=== PATIENT | male | born 1980 | race Caucasian/White ===

== ENCOUNTER 2023-01-03 08:37 | Outpatient (RCR) | payer OTHER, SELFPAY ==
--- NOTE | 2022-11-09 10:06 | ONC.NURNOTE ---
Dx: Crohn's disease
--- NOTE | 2022-12-16 14:47 | URNOTE ---
Addendum entered by Nidia Clemens RN 12/16/22 15:43: Called pt to schedule infusion on 01/03/2023. Pt is aware of the PA being good only through 02/03/2023. Pt's fiance also on the line and plans to discuss this issue with a benefits person at their place of employment to work on getting this further covered at [facility]. Original Note: Request received for authorization for?Inflectra ([id number]). Prior Authorization for Inflectra is approved for a nahomy period administration of Inflectra in an outpatient facility until 02/03/2023 per [facility] see scanned document.
[2023-01-03 08:51] VITALS: BP 143/89; PULSE 95; RESP 16; TEMP 36.8; O2SAT 96
[2023-01-03] MEDS: 0.9 % SODIUM CHLORIDE 250 ml 250 ML 35 ML IV (09:15)
--- NOTE | 2023-01-27 12:16 | ONC.NURNOTE ---
Manufacturing Operations Manager received a call from Orion asking to cancel his Remicade infusion appointment due to insurance issues. Orion will be receiving his Remicade at another facility.
== END 2023-07-02 23:59 | disposition home or self-care (01) ==
LOC: CCIC 08:37
PROVIDERS: Visit Provider Clinical Nurse Specialist
DX: K50.90 Crohn's disease, unspecified, without complications (principal)
CPT/HCPCS: 96413; 96415; Q5103; J7050

== ENCOUNTER 2024-05-02 12:55 | Emergency (ER) | payer OTHER, SELFPAY ==
[2024-05-02 12:58] VITALS: BP 159/98; PULSE 80; RESP 18; TEMP 36.8; O2SAT 96; BMI 33.4
--- OUTSIDE RECORDS SUMMARY | 2024-05-02 12:58 | XMS_ITS | Encounter Summary ---
Author Organization [facility] Address [address] [place] [address] Care Team Providers Care Auto Cleaner Name Role Phone Tristan Burnham D.O. Primary Care Provider [phone]- [phone] Reason for Referral * Outpatient (Routine) - Authorized Specialty Diagnoses / Procedures Referred By Contact Referred To Contact Gastroenterology and Hepatology Diagnoses Elevated Liver Enzyme Abnormal, Aspartate Transaminase, Serum Glutamic-Oxaloacetic Transaminase, Alanine Transaminase Aysha Brantley M.B., B.Ch., B.A.O. [address] [place] [phone] Phone: tel:[phone] fax:[phone] [facility] Referral ID Status Reason Start Date Expiration Date V isits Requested Visits Authorized [id number] Authorized 04/30/2024 10/30/2025 1 1 OW UP MANAGER Encounter Details Date Type Department Care Team (Latest Contact Info) Description 04/30/2024 Results Follow-Up Division of Gastroenterology in [place], [place] [address] [place] [phone] Aysha Brantley M.B., B.Ch., B.A.O. [address] [place] [phone] Comprehensive Metabolic Panel, CBC with Differential, Blood, Iron and Total Iron-Binding Capacity, Additional followed-up results: 4 Social History Tobacco Use Types Packs/Day Years Used Date Smoking Tobacco: Former Smokeless Tobacco: Former Chew Alcohol Use Standard Drinks/Week Comments Yes 4 (1 standard drink = 0.6 oz pur e alcohol) Na [facility] Utilities Answer Date Recorded In the past 12 months has e electric, gas, oil, or water company threatened to shut off services in your home? No 03/21/2024 Humiliation, Afraid, Rape, and Kick questionnair e Answer Date Recorded Within the last year, have y ou been afraid of your partner or ex-partner? No 10/28/2022 Within the last year, have y ou been humiliated or emotionally abused in other ways by your partner or ex-partner? No Within the last year, have y ou been kicked, hit, slapped, or otherwise physically hurt by your partner or ex-partner? No 10/28/2022 Within the last year, have y ou been raped or forced to have any kind of sexual activity by your partner or ex-partner? No 10/28/2022 Social Connection and Isolat ion Panel [NHANES] Answer Date Recorded In a typical week, how many times do you talk on the phone with family, friends, or neighbors? More than three times a week 04/30/2021 How often do you get togethe r with friends or relatives? Once a week 04/30/2021 How often do you attend chur or buddhist services? Never 04/30/2021 Do you belong to any clubs o r organizations such as gnosticism groups, unions, fraternal or athletic groups, or school groups? No 04/30/2021 How often do you attend meet ings of the clubs or organizations you belong to? Never 04/30/2021 Are you , , di vorced, , never , or living with a partner? Never 04/30/2021 AUDIT-C Answer Date Recorded Q1: How often do you have a drink containing alc ohol? 2-4 times a month 04/30/2021 Q2: How many drinks containi ng alcohol do you have on a typical day when you are drinking? 3 or 4 04/30/2021 Q3: How often do you have si x or more drinks on one occasion? Less than monthly 04/30/2021 Overall Financial Resource Strain (CARDIA) Answe r Date Recorded How hard is it for you to pa y for the very basics like food, housing, medical care, and heating? Not hard at all 10/28/2022 PHQ-2 Answer Date Recorded PHQ-2 Score 0 04/30/2021 [facility] of Occupat ional [facility] - Occupational Stress Questionnaire Answer Date Recorded Do you feel stress - tense, restless, nervous, or anxious, or unable to sleep at night because your mind is troubled all the time - these days? To some extent 04/30/2021 Exercise Vital Sign Answer Date Recorde d On average, how many days pe r week do you engage in moderate to strenuous exercise (like a brisk walk)? 5 days 03/21/2024 On average, how many minutes do you engage in exercise at this level? 60 min 03/21/2024 Hunger Vital Sign Answer Date Recorded Within the past 12 months, y ou worried that your food would run out before you got the money to buy more. Never true 03/21/19 Within the past 12 months, t he food you bought just didn't last and you didn't have money to get more. Never true 03/21/2024 PRAPARE - Transportation Answer Date Re corded In the past 12 months, has l ack of transportation kept you from medical appointments or from getting medications? No 03/01 In the past 12 months, has l ack of transportation kept you from meetings, work, or from getting things needed for daily living? No 03/21/2024 Depression Answer Date Recor ded PHQ-9 Total Score (max 27) 2 04/30 Nutrition Answer Date Recorded On average, how many serving s of fruits and vegetables do you eat per day (serving size is equal to 1 cup or approximately the size of a tennis ball)? 3-5 03/21/2024 Dental Answer Date Recorded Dental: Regular Dentist Yes 05/01/19 Employment Answer Date Recorded Employment status Employed and actively working without restrictions 03/21/2024 Housing Stability Answer Date Recorded What is your living situation today? [facility] a [facility] place to live 03/21/2024 Education Answer Date Recorded What is the highest level of school you have completed or the highest degree you have received? Bachelor's degree (e.g., BA, AB, BS) 08/07/2019 Sex and Gender Information Value Date Recorded Sex Assigned at Male 02/09/2017 7:38 PM FOLLOW UP MANAGER Legal Sex Male 4:30 PM FOLLOW UP MANAGER Gender Identity Male 02/09/2017 7:38 PM FOLLOW UP MANAGER Sexual Orientation Straight 02/09/2017 7: 38 PM FOLLOW UP MANAGER documented as of this encounter Miscellaneous Notes * Result Encounter Note - Aysha Brantley M.B., B.Ch., B.A.O. - 04/30/2024 12:28 PM CST Review of labs performed prior to initiation of new biologic therapy for inflammatory bowel disease: - creatinine 1.07, albumin 4.4, AST mildly elevated 45, ALT mildly elevated 57, alkaline phosphatase 71, total bilirubin 0.7 - ferritin 63, iron 120, TIBC 407, vitamin B12 292, C-reactive protein less than 3 - hemoglobin 16.1, WBC 6.6 - hepatitis B surface antigen negative - QuantiFERON gold negative OW UP MANAGER documented in this encounter Plan of Treatment Upcoming Encounters Date Type Department Care Team (Late st Contact Info) Description 05/29/2024 12:00 PM CDT Appointment Department of Laboratory Medicine and Pathology, [place], [place] [address] [place] [phone] Aysha Brantley M.B., B.Ch., B.A.O. [address] [place] [phone] 05/29/2024 2:00 PM CDT Appointment Department of Radiology, [place], [place] [address] [place] [phone] Aysha Brantley M.B., B.Ch., B.A.O. [address] [place] [phone] 05/30/2024 9:45 AM CDT Appointment Division of Gastroenterology in [place], [place] [address] [place] [phone] Aysha Brantley M.B., B.Ch., B.A.O. [address] [place] [phone] 06/07/2024 10:00 AM CDT Telemedicine Division of Gastroenterology in [place], [place] [address] [place] [phone] Aysha Brantley M.B., B.Ch., B.A.O. [address] [place] [phone] Scheduled Orders Name Type Priority Associated Diagnoses Orde r Schedule HBc Total Ab, Serum Microbiology Routine Elevated Liver Enzyme Abnormal, Aspartate Transaminase, Serum Glutamic-Oxaloacetic Transaminase, Alanine Transaminase Expected: 04/30/2024, Expires: 07/31/2025 HBs Antibody, Serum Microbiology Routine Elevated Liver Enzyme Abnormal, Aspartate Transaminase, Serum Glutamic-Oxaloacetic Transaminase, Alanine Transaminase Expected: 04/30/2024, Expires: 07/31/2025 Scheduled Referrals Name Type Priority Associated Diagnoses Order Schedule Gastroenterology and Hepatology - Hepatology consult (clinic) Outpatient Referral Routine Elevated Liver Enzyme Abnormal, Aspartate Transaminase, Serum Glutamic-Oxaloaceti c Transaminase, Alanine Transaminase Expected: 04/30/2024, Expires: 07/31/2025 documented as of this encounter Visit Diagnoses Diagnosis Elevated Liver Enzyme Abnormal, Aspartate Transaminase, Serum Glutamic- Oxaloacetic Transaminase, Alanine Transaminase- Primary documented in this encounter Additional Health Concerns Assessment Noted Time PHQ-9 Depression Total Score: 2 05/01/19 22 8:11 AM FOLLOW UP MANAGER documented as of this encounter Care Teams Auto Cleaner Relationship Specialty Start Date End Date Tristan Burnham D.O. [address], [place] [phone] PCP - General Internal Medicine 12/12/17 documented as of this encounter
--- OUTSIDE RECORDS SUMMARY | 2024-05-02 12:58 | XMS_ITS | Encounter Summary ---
Author Organization [facility] Address [address] [place] [address] Care Team Providers Care Party Planner Name Role Phone Tristan Burnham D.O. Primary Care Provider +1- [phone] Encounter Details Date Type Department Care Team (Late st Contact Info) Description 04/20/2024 Orders Only Division of Gastroenterology in [place], [place] [address] [place] [phone] External, Ordering Provider, Anthony Social History Tobacco Use Types Packs/Day Years Used Date Smoking Tobacco: Former Smokeless Tobacco: Former Chew Alcohol Use Standard Drinks/Week Comments Yes 4 (1 standard drink = 0.6 oz pur e alcohol) Na [facility] Utilities Answer Date Recorded In the past [...] 04/30/2021 How often do you attend chur ch or yarsanism services? Never 04/30/2021 Do you belong to any clubs o r organizations such as evangelical groups, unions, fraternal or athletic groups, or [...] Answer Date Recorded PHQ-2 Score 0 04/30/2021 [facility] of Occupat ional [facility] - Occupational Stress Questionnaire Answer Date Recorded [...] money to buy more. Never true 03/21/19 25 Within the past 12 months, t he [...] your living situation today? I have a [facility] place to live 03/21/2024 Education Answer Date Recorded What is the highest level of school you have completed or the highest degree you have received? Bachelor's degree (e.g., BA, AB, BS) 08/07/2019 Sex and Gender Information Value Date Recorded Sex Assigned at Male 02/09/2017 7:38 PM PROMOTION WRITER Legal Sex Male 4:30 PM PROMOTION WRITER Gender Identity Male 02/09/2017 7:38 PM PROMOTION WRITER Sexual Orientation Straight 02/09/2017 7: 38 PM PROMOTION WRITER documented as of this encounter Plan of Treatment Upcoming Encounters Date Type Department Care Team (Late st Contact Info) Description 05/29/2024 12:00 PM CDT Appointment Department of Laboratory Medicine and Pathology, [facility] in [place], [place] [address] [place] [phone] Aysha Brantley M.B., B.Ch., B.A.O. [address] [place] [phone] 05/29/2024 2:00 PM CDT Appointment Department of Radiology, [facility], in [place], [place] [address] [place] [phone] Aysha Brantley M.B., B.Ch., B.A.O. [address] [place] [phone] 05/30/2024 9:45 AM CDT Appointment Division of Gastroenterology in [place], [place] [address] [place] [phone] Aysha Brantley M.B., B.Ch., B.A.O. [address] [place] [phone] 06/07/2024 10:00 AM CDT Telemedicine Division of Gastroenterology in [place], [place] [address] [place] [phone] Aysha Brantley M.B., B.Ch., B.A.O. [address] [place] [phone] documented as of this encounter Procedures Procedure Name Priority Date/Time Associated Diagnosis Comments IRON AND TOT IRON-BINDING CAPACITY, S/P Routine 04/20/2024 7:19 AM PROMOTION WRITER HEPATITIS B SURFACE ANTIGEN Routine 04/20/2024 7:19 AM PROMOTION WRITER CBC WITH DIFFERENTIAL, B Routine 04/20/2024 7:19 AM PROMOTION WRITER C-REACTIVE PROTEIN (CRP), S/P Routine 04/20/2024 7:19 AM PROMOTION WRITER FERRITIN, S Routine 04/20/2024 7:19 AM PROMOTION WRITER VITAMIN B12 ASSAY, S Routine 04/20/2024 7:19 AM PROMOTION WRITER COMPREHENSIVE METABOLIC PANEL, S/P Routine 04/20/2024 7:19 AM PROMOTION WRITER documented in this encounter Results * Hepatitis B Surface Antigen (04/20/2024 7:19 AM PROMOTION WRITER) EXT Hepatitis B Surface Ag NON-REACTI VE NON-REACTI VE SCANNED REPORT 04/20/2024 7:19 AM PROMOTION WRITER Narrative SCANNED REPORT - 04/26/2024 8:10 AM PROMOTION WRITER Source result document attached to Order Number [id number] ([id number]) dated 04/20/2024. External results verified in Extract by Katarina Faust on 04/26/2024 at 08:03 AM. us Ordering Provider External Anthony LAB MICROBIOLOGY - BLOOD ORDERABLES Final Result Performing Organization Address City/[facility]/ZIP Co de Phone Number SCANNED REPORT * CRP (C-Reactive Protein) (04/20/2024 7:19 AM PROMOTION WRITER) EXT C-Reactive Protein Quantative <3.0 <8.0 mg/L SCANNED REPORT 04/20/2024 7:19 AM PROMOTION WRITER Narrative [facility] - 04/26/2024 8:10 AM PROMOTION WRITER Source result document attached to Order Number [id number] ([id number]) dated 04/20/2024. External results verified in Extract by Katarina Faust on 04/26/2024 at 08:03 AM. us Ordering Provider Rick Cruz LAB BLOOD ADD-ON Final Result Performing Organization Address City/[facility]/ZIP Co de Phone Number [facility] NA SCANNED REPORT * Vitamin B12 Assay (04/20/2024 7:19 AM PROMOTION WRITER) Pathologist [facility] EXT Vitamin B12 Assay, S 292 200 - 1,100 pg/mL SCANNED REPORT 04/20/2024 7:19 AM PROMOTION WRITER Narrative [facility] - 04/26/2024 8:10 AM PROMOTION WRITER Source result document attached to Order Number [id number] ([id number]) dated 04/20/2024. External results verified in Extract by Katarina Faust on 04/26/2024 at 08:03 AM. us Ordering Provider Rick Cruz LAB BLOOD ADD-ON Final Result Performing Organization Address [facility] Co de Phone Number [facility] NA SCANNED REPORT * Ferritin (04/20/2024 7:19 AM PROMOTION WRITER) Pathologist [facility] EXT Ferritin, S 63 38 - 380 ng/mL SCANNED REPORT 04/20/2024 7:19 AM PROMOTION WRITER Narrative [facility] - 04/26/2024 8:10 AM PROMOTION WRITER Source result document attached to Order Number [id number] ([id number]) dated 04/20/2024. External results verified in Extract by Katarina Faust on 04/26/2024 at 08:03 AM. us Ordering Provider Rick Cruz LAB BLOOD ADD-ON Final Result Performing Organization Address [facility] Phone Number [facility] NA SCANNED REPORT * Iron and Total Iron-Binding Capacity (04/20/2024 7:19 AM PROMOTION WRITER) [facility] EXT Iron 120 50 - 180 mcg/dL SCANNED REPORT EXT Total Iron Binding Capacity 407 250 - 425 mcg/dL SCANNED REPORT 04/20/2024 7:19 AM PROMOTION WRITER Narrative [facility] - 04/26/2024 8:10 AM PROMOTION WRITER Source result document attached to Order Number [id number] ([id number]) dated 04/20/2024. External results verified in Extract by Katarina Faust on 04/26/2024 at 08:03 AM. us Ordering Provider Rick Cruz LAB BLOOD ADD-ON Final Result Performing Organization Address [facility] Co de Phone Number [facility] NA SCANNED REPORT * CBC with Differential, Blood (04/20/2024 7:19 AM PROMOTION WRITER) [facility] EXT Leukocytes 6.6 3.8 - 10.8 Thousand/u L SCANNED REPORT EXT RBC 5.17 4.20 - 5.80 Million/uL SCANNED REPORT EXT Hemoglobin 16.1 13.2 - 17.1 g/dL SCANNED REPORT EXT Hematocrit 47.1 38.5 - 50.0 % SCANNED REPORT EXT MCV 91.1 80.0 - 100.0 fL SCANNED REPORT EXT RDW 13.3 11.0 - 15.0 % SCANNED REPORT 04/20/2024 7:19 AM PROMOTION WRITER Narrative [facility] - 04/26/2024 8:10 AM PROMOTION WRITER Source result document attached to Order Number [id number] ([id number]) dated 04/20/2024. External results verified in Extract by Katarina Faust on 04/26/2024 at 08:03 AM. us Ordering Provider External M.D. LAB BLOOD ADD-ON Final Result [facility] NA SCANNED REPORT * (ABNORMAL) Comprehensive Metabolic Panel (04/20/2024 7:19 AM PROMOTION WRITER) [facility] EXT Glucose 98 65 - 99 mg/dL SCANNED REPORT EXT BUN (Blood Urea Nitrogen) 13 7 - 25 mg/dL SCANNED REPORT EXT Creatinine 1.07 0.60 - 1.29 mg/dL SCANNED REPORT EXT Estimated GFR (eGFR) 87 >=60 mL/min/1.7 3m2 SCANNED REPORT EXT Sodium 143 135 - 146 mmol/L SCANNED REPORT EXT Potassium 3.8 3.5 - 5.3 mmol/L SCANNED REPORT EXT Chloride 104 98 - 110 mmol/L SCANNED REPORT EXT CO2 30 20 - 32 mmol/L SCANNED REPORT EXT Calcium, Total 10.0 8.6 - 10.3 mg/dL SCANNED REPORT EXT Total Protein 7.4 6.1 - 8.1 g/dL SCANNED REPORT EXT Albumin 4.4 3.6 - 5.1 g/dL SCANNED REPORT EXT Bilirubin, Total 0.7 0.2 - 1.2 mg/dL SCANNED REPORT EXT Alkaline Phosphatase 71 36 - 130 U/L SCANNED REPORT EXT AST 45(H) 10 - 40 U/L SCANNED REPORT EXT ALT 57(H) 9 - 46 U/L SCANNED REPORT 04/20/2024 7:19 AM PROMOTION WRITER Narrative SCANNED REPORT - 04/26/2024 8:10 AM PROMOTION WRITER External results verified in Extract by Katarina Faust on 04/26/2024 at 08:03 AM. Additional tests on scanned report. us Ordering Provider External M.D. LAB BLOOD ADD-ON Final Result SCANNED REPORT documented in this encounter Visit Diagnoses Not on filedocumented in this encounter Additional Health Concerns Assessment Noted Time PHQ-9 Depression Total Score: 2 05/01/19 22 8:11 AM PROMOTION WRITER documented as of this encounter Care Teams Party Planner Relationship Specialty Start Date End Date Tristan Burnham D.O. [address] [phone] PCP - General Internal Medicine 12/12/17 documented as of this encounter
--- OUTSIDE RECORDS SUMMARY | 2024-05-02 12:58 | XMS_ITS | Clinical Summary ---
Author Organization [facility] Address [address] [place] [id number] Care Team Providers Care Civil Structural Engineer Name Role Phone Timothy Gorman DO Primary Care Provider [phone] Allergies Active Allergy Reactions Criticality Noted Date Comments Pollen Extracts Other - Describe In Comment Field 03/23/2018 Nasal congestion Medications inFLIXimab (REMICADE) 100 mg injectionIndica tions:Crohn's disease Inject intravenous. q 6 weeks 0 04/27/19 11 Active omeprazole (PRILOSEC) 40 mg Delayed-Release capsuleIndicati ons:gastroesoph ageal reflux disease Take 40 mg by mouth once daily. Active multivitamin chewIndications :vitamin deficiency prevention Take 1 tablet by mouth once daily. Active fluoxetine HCl (PROZAC ORAL)Indication s:depression Take 30 mg by mouth once daily. Active cetirizine (ZYRTEC) 10 mg tabletIndicatio ns:Allergic rhinitis, unspecified seasonality, unspecified trigger Take 1 Tablet (10 mg) by mouth once daily. 30 Tablet 5 06/19/19 23 Active amLODIPine (NORVASC) 5 mg tabletIndicatio ns:Primary hypertension Take 1 Tablet (5 mg) by mouth once daily. 90 Tablet 3 04/01/19 24 Active beclomethasone dipropionate (QVAR REDIHALER) 80 mcg/actuation HFAb HFA inhaler Inhale 1 Puff by mouth. Active CYANOCOBALAMIN, VITAMIN B-12, INJ Inject 1,000 mcg As Directed. Active FLUoxetine (PROZAC) 10 mg capsuleIndicati ons:Mild episode of recurrent major depressive disorder,Anxiet y state Take 1 Capsule by mouth once daily. Take in combination with 20mg capsule for a total daily dose of 30mg. 90 Capsule 02/27/20 24 Active FLUoxetine (PROZAC) 20 mg capsuleIndicati ons:Mild episode of recurrent major depressive disorder,Anxiet y state Take 1 Capsule by mouth once daily. Take in combination with 10mg capsule for a total dose of 30mg. 90 Capsule 02/27/20 24 Active lisinopriL (PRINIVIL; ZESTRIL) 40 mg tabletIndicatio ns:Primary hypertension Take 1 Tablet by mouth once daily. 90 Tablet 04/06/19 25 Active lisinopriL (PRINIVIL; ZESTRIL) 40 mg tabletIndicatio ns:Primary hypertension Take 1 Tablet (40 mg) by mouth once daily. 90 Tablet 3 01/26/20 23 025 Discontinued Active Problems Problem Noted Date Diagnosed Date Immunodeficiency due to drugs 03/24/2023 Gastroesophageal reflux disease 04/25/2018 06/18/2022 Primary hypertension 08/09/2017 06/18/2022 Mild episode of recurrent major depressive disor joel 08/09/2017 06/18/2022 Chronic rhinitis 06/09/2017 06/18/2022 B12 deficiency 11/14/2014 06/18/2022 Crohn's disease 02/16/2010 Overview (02/16/2010): Diagnosed at age 17. Anxiety state, unspecified 11/19/2007 Resolved Problems Problem Noted Date Diagnosed Date Resolved Date Nephrolithiasis 04/25/2018 06/18/2022 06/18/2022 Erectile dysfunction 12/12/2017 06/18/2022 023 Iron deficiency anemia 11/12/2016 06/18/202206/18 Anemia, unspecified 05/25/2006 06/19/19 23 Overview (02/16/2010): Secondary to Crohn's Encounters Date Type Department Care Team Description 04/20/2024 7:30 AM MAINFRAME PROGRAMMER ANALYST Orders Only [facility] [place] [address] [place] [address] Lab, [facility] 04/19/2024 Travel 04/05/2024 Refill [facility] [address] [facility] [address] Mendy Gormani, DO Refill Request (Lisinopril) 02/23/2024 Refill [facility] [address] [place] [address] Timothy Gorman, DO Refill Request (Fluoxetine, Fluoxetine) from Last 3 Months Immunizations Name Administration Dates Next Due COVID-19 VACCINE SPIKEVAX (M ODERNA 50MCG/0.5ML) 12YO+ PFS 12/17/2022 Hepatitis A (Adult) 12/17/2011 Hepatitis B (Adult) 04/20/2006,10/21/1997,1997 Influenza Virus, Unspecified 11/11/2016,11/23/19 14,12/08/2009 Influenza, IIV3 (Age >=3 years) 12/08/2009 Influenza, IIV4 12/17/2022,01/10/2021,03/14/2015 Influenza, RIV3 (Age =>18 Years) 11/22/2013 MMR 10/05/1991 Meningococcal Mcv4, Unspecified Formulation 11/28 Meningococcal Vaccine (Menactra) 12/17/2011 Pneumococcal Poly,23-Valent (Pneumovax) 12/17/19 12 Tdap 12/17/2011,04/20/2006 Tuberculin (PPD) 12/08/2009 Family History Medical History Relation Name Comments Unknown Father Diabetes Maternal Uncle Teenager Type I Good Health Mother Asthma Sister Relation Name Status Comments Father Alive Maternal Uncle Mother Alive Sister Social History Tobacco Use Types Packs/Day Years Used Date Smoking Tobacco: Former Smokeless Tobacco: Former Chew Quit: 11/19/2009 Tobacco Cessation:Counseling Given: Yes Alcohol Use Standard Drinks/Week Comments Yes 0 (1 standard drink = 0.6 oz pur e alcohol) once a week PHQ-2 Answer Date Recorded PHQ-2 TOTAL SCORE 0 04/19/2023 Social Connections Answer Date Recorded Frequency of Communication with Friends and Fami ly 0 06/18/2022 Financial Resource Strain Answer Date R ecorded Difficulty of Paying Living Expenses 3 06/18/2022 Difficulty of Paying Living Expenses Not on file 06/18/2022 Food Insecurity Answer Date Recorded Worried About Running Out of Food in the Last Ye ar 1 06/18/2022 Transportation Needs Answer Date Record ed Lack of Transportation (Medical) 1 06/18/2022 Housing Stability Answer Date Recorded Unable to Pay for Housing in the Last Year 1 06/18/2022 Sex and Gender Information Value Date Recorded Sex Assigned at Not on file Legal Sex Male 5:24 AM MAINFRAME PROGRAMMER ANALYST Gender Identity Not on file Sexual Orientation Not on file Occupation Industry Job Start Date Job End Date [employer] Not on file Not on 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 Not on file Not on file Not on file Obstetrics History Last Filed Vital Signs Vital Sign Reading Time Taken Comments Blood Pressure 136/71 06/21/2023 7:30 AM CDT Pulse 101 06/21/2023 7:30 AM CDT Temperature 36.4 C (97.6 F) 03/24/2023 8:39 AM MAINFRAME PROGRAMMER ANALYST Respiratory Rate 20 06/18/2022 1:53 PM CDT Oxygen Saturation 95% 06/21/2023 7:30 AM CDT Inhaled Oxygen Concentration - - Weight 124.1 kg (273 lb 9.6 oz) 06/21/2023 7:30 AM CDT Height 188 cm (6' 2) 06/21/2023 7:30 AM CDT Body Mass Index 35.13 06/21/2023 7:30 AM CDT Plan of Treatment Upcoming Encounters Date Type Department Care Team (Late st Contact Info) Description 05/04/2024 3:20 PM MAINFRAME PROGRAMMER ANALYST Office Visit [facility] [address] [place] [address] Timothy Gorman, [address] [place] [address] Health Maintenance Due Date Last Done Comments Hepatitis C screening for ag e 18-79 1996 Pneumococcal series for age 6-49 (2 of 2 - PCV) 12/16/2012 12/17/2011 Tetanus booster 12/16/2021 12/17/2011, 04/20/2006 Lipids for age 45-75 10/13/2023 02/25/2010 COVID-19 vaccine series ( season) 2023 12/17/2022, 12/31/2020, 05/28/2020, Additional history exists Influenza for age 9-49 10/30/2023 3, 01/10/2021, 11/11/2016, Additional history exists Depression screening for age 12+ 04/19/2024 04/19/19 24 BMI (ht and wt on same day) for age 18+ 06/20/2024 06/21/2023, 12/27/2022, 06/18/2022 Colonoscopy through age 75 05/26/2031 05/25/2021 HIV for age 15-65 Completed 02/09/2010 Tdap Completed 12/17/2011, 04/20/2006 Procedures Procedure Name Priority Date/Time Associated Diagnosis Comments SCAN-COLONOSCOPY 05/25/2021 12:0 0 AM CDT LIPID PANEL Routine 02/25/2010 12:02 PM MAINFRAME PROGRAMMER ANALYST Screening for lipoid disorders ANTI HIV 1/2 Routine 02/09/2010 2:43 PM MAINFRAME PROGRAMMER ANALYST Screening for STDs (sexually transmitted diseases) from Last 3 Months or Most Recently Relevant to Health Maintenance Results * SCAN-COLONOSCOPY (05/25/2021 12:00 AM CDT) us Scanner OTHER Final Result * LIPID PANEL (02/25/2010 12:02 PM MAINFRAME PROGRAMMER ANALYST) CHOLESTEROL,TOTAL 186 110 - 199 mg/dL [facility] TRIGLYCERIDES 50 <150 mg/dL [facility] HDL CHOLESTEROL 71 >40 mg/dL [facility] CHOL/HDL RATIO 2.62 <4.51 [facility] LDL CHOLESTEROL 105 <131 mg/dL [facility] PATIENT STATUS Fasting [facility] Blood specimen (specimen) BLOOD SPECIMEN / Unknown 02/25/2010 12:02 PM MAINFRAME PROGRAMMER ANALYST 02/25/2010 11:56 AM MAINFRAME PROGRAMMER ANALYST us Junito Redd MD CHEMISTRY Final Resu lt [facility] [address] [place] [address] * HIV (02/09/2010 2:43 PM MAINFRAME PROGRAMMER ANALYST) ANTI HIV 1/2 Non-reacti ve [facility] Blood specimen (specimen) BLOOD SPECIMEN / Unknown 02/09/2010 2:43 PM MAINFRAME PROGRAMMER ANALYST 02/09/2010 2:35 PM MAINFRAME PROGRAMMER ANALYST us Junito Redd MD SEND OUTS Final Resu lt [facility] INTERNAL ZIP [id number] [place] [id number] from Last 3 Months or Most Recently Relevant to Health Maintenance Insurance [facility] [employer] Advance Directives * Full Code (Latest Code Status on File) Date Activated Date Inactivated Comments 03/28/2018 9:38 AM 03/28/2018 12:59 PM * Full Code Date Activated Date Inactivated Comments 11/16/2007 3:45 PM 11/21/2007 4:25 PM * Full Code Date Activated Date Inactivated Comments 02/26/2006 6:01 AM 02/27/2006 6:40 PM Care Teams Civil Structural Engineer Relationship Specialty Start Date End Date Timothy [place] [address] PCP - General Family Practice 02/09/23
--- OUTSIDE RECORDS SUMMARY | 2024-05-02 12:58 | XMS_ITS | Clinical Summary ---
Author Organization [facility] Address [address] [place] [address] Care Team Providers Care Wool Mixer Name Role Phone Tristan Burnham D.O. Primary Care Provider [phone] Source Comments Patient records contain information from all sites at [facility]. For routine questions regarding patient records, call [phone] during business hours, M-F 8:00 AM - 5:00 PM Central Time. Record requests for emergency care only can be directed to [phone] at any time.[facility] Allergies Active Allergy Reactions Criticality Noted Date Comments Pollen Extracts Other (see comments) 01/04/2017 Medications * This document contains information received from the source organization and may not represent a complete record from that organization. cyanocobalamin (for_VITAMIN B12) 100 mcg tablet Take 100 mcg by mouth daily. Active multivitamin chewable tablet Chew 1 tablet daily. Active FLUoxetine (PROzac) 20 mg capsuleIndicati ons:Depression Major Recurrent Mild (HCC),Anxiety TAKE 1 CAPSULE (20 MG TOTAL) BY MOUTH DAILY. WITH 10MG DOSE FOR TOTAL OF 30 MG DAILY. 90 capsule 3 3 Active FLUoxetine (PROzac) 10 mg capsuleIndicati ons:Depression Major Recurrent Mild (HCC),Anxiety Take 1 capsule (10 mg total) by mouth daily. With 20mg dose for total of 30 mg daily. 90 capsule 3 3 Active lisinopriL (PRINIVIL,ZESTR IL) 40 mg tablet TAKE 1 TABLET BY MOUTH EVERY DAY 90 tablet 08/07/202 3 Active colestipoL (COLESTID) 1 gram tabletIndicatio ns:Crohn's Disease (HCC),Diarrhea Take 1 tablet (1 g total) by mouth 2 (two) times a day. 60 tablet 2 3 Active Additional Information Patient not taking.Reported on 08/05/2023 cetirizine (ZyrTEC) 10 mg tablet Take 10 mg by mouth as needed. Active fexofenadine (NIGEL) 60 mg tablet Take 60 mg by mouth as needed. Active amLODIPine (NORVASC) 2.5 mg tablet Take 5 mg by mouth daily. 3 Active [id number]-[id number]-[id number]-[id number] b-C (MoviPrep) 100-7.5-2.691 gram kit Take first half of the prep at 4pm the evening before and start second half 3 to 6 hours before and finish 2 hours prior to report time. 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 Comprehensive Metabolic Panel, CBC with Differential, Blood, Iron and Total Iron-Binding Capacity, Additional followed-up results: 4 04/20/2024 Orders Only Division of Gastroenterology in [place], [place] [address] [place] [address] External, Ordering ProviderAnthony 03/22/2024 1:00 PM TECHNICAL SOLUTIONS ENGINEER Telemedicine Division of Gastroenterology in [place], [place] [address] [place] [address] Aysha Brantley M.B., B.Ch., B.A.O. Crohn's Disease (HCC) (Primary Dx); Melanoma Trunk (HCC); Pain Periumbilical 03/12/2024 Orders Only Division of Gastroenterology in [place], [place] [address] [place] [address] Charisma Niño M.D. 03/09/2024 Orders Only Department of Infusion Therapy in [place], [place] [address] [place] [address] Loy Lara, R.NValeriano 03/06/2024 Orders Only [facility] PCP [facility] MNT Tristan Burnham D.O. Monitoring For Therapeutic Drug Therapy from Last 3 Months Immunizations Immunization Administration Dates Next Due HepA Adult 12/17/2011 HepB Adult 04/20/2006 HepB Pediatric/Adolescent 10/21/1997,09/16/1997 Influenza TIV (IM) 11/22/2013,12/08/2009 Influenza, Seasonal, Injectable 12/08/2009 Influenza, Unspecified 11/11/2016 MCV4, Unspecified 12/17/2011 MMR 10/05/1991 PPD Test 12/08/2009 PPSV23 12/17/2011 Tdap 12/17/2011,04/20/2006 influenza trivalent vaccine (6 months and older)(PF) 12/12/2017,12/17/2011 influenza vaccine quad (FLUZONE/FLUARIX) (6 months and older)(PF) 01/10/2021,10/29/2019,12/10/2018,2016,03/14/2015 Family History Medical History Relation Name Comments No Known Problems Father estranged Stroke Maternal Grandfather Lammica Larry BALL Breast cancer Mother Tori Garcia Diabetes Mother's Brother Damian Type 1 Allergies Sister Diabetes mellitus type I Uncle Relation Name Status Comments Father estranged Other Maternal Grandfather Mira Juarez Mother Tori Garcia Mother's Brother Damian Sister Uncle Social History Tobacco Use Types Packs/Day Years Used Date Smoking Tobacco: Former Smokeless Tobacco: Former Chew Tobacco Cessation:Counseling Given: Not Answered Alcohol Use Standard Drinks/Week Comments Yes 4 (1 standard drink = 0.6 oz pur e alcohol) Na [facility] Utilities Answer Date Recorded In the past 12 months has e [place], [employer], oil, or water [employer] threatened to shut off services in your [...] How often do you attend chur or gnosticism services? Never 04/30/2021 Do you belong to any clubs o r organizations such as temple groups, unions, fraternal or athletic groups, or [...] Date Recorded PHQ-2 Score 0 04/30/2021 [facility] - Occupational Stress Questionnaire Answer Date Recorded [...] your living situation today? I have a reza place to live 03/21/2024 Education Answer Date Recorded What is the highest level of school you have completed or the highest degree you have received? Bachelor's degree (e.g., BA, AB, BS) 08/07/2019 Sex and Gender Information Value Date Recorded Sex Assigned at Male 02/09/2017 7:38 PM TECHNICAL SOLUTIONS ENGINEER Legal Sex Male 4:30 PM TECHNICAL SOLUTIONS ENGINEER Gender Identity Male 02/09/2017 7:38 PM TECHNICAL SOLUTIONS ENGINEER Sexual Orientation Straight 02/09/2017 7: 38 PM TECHNICAL SOLUTIONS ENGINEER Last Filed Vital Signs Vital Sign Reading Time Taken Comments Blood Pressure 140/83 01/27/2024 2:10 PM TECHNICAL SOLUTIONS ENGINEER Pulse 76 01/27/2024 2:10 PM TECHNICAL SOLUTIONS ENGINEER Temperature 36.6 C (97.9 F) 01/27/2024 12:54 PM TECHNICAL SOLUTIONS ENGINEER Respiratory Rate 16 01/27/2024 2:10 PM TECHNICAL SOLUTIONS ENGINEER Oxygen Saturation 97% 01/27/2024 12:54 PM TECHNICAL SOLUTIONS ENGINEER Inhaled Oxygen Concentration - - Weight 118 kg (260 lb 12.9 oz) 01/27/2024 12:54 PM TECHNICAL SOLUTIONS ENGINEER Height 186 cm (6' 1.23) 04/30/2021 8:17 AM TECHNICAL SOLUTIONS ENGINEER Body Mass Index 34.2 04/30/2021 8:17 AM TECHNICAL SOLUTIONS ENGINEER Plan of Treatment Upcoming Encounters Date Type Department Care Team (Late st Contact Info) Description 05/29/2024 12:00 PM CDT Appointment Department of Laboratory Medicine and Pathology, [place], [place] [address] [place] [address] Aysha Brantley M.B., B.Ch., B.A.O. [address] [place] [phone] 05/29/2024 2:00 PM CDT Appointment Department of Radiology, [facility] in [place], [place] [address] [place] [address] Aysha Brantley M.B., B.Ch., B.A.O. [address] [place] [phone] 05/30/2024 9:45 AM CDT Appointment Division of Gastroenterology in [place], [place] [address] [place] [phone] Aysha Brantley M.B., B.Ch., B.A.O. [address] [place] [phone] 06/07/2024 10:00 AM CDT Telemedicine Division of Gastroenterology in [place], [place] [address] [place] [phone] Aysha Brantley M.B., B.Ch., B.A.O. [address] [place] [phone] Health Maintenance Due Date Last Done Comments CT Colonography 1978 Cologuard 1978 Depression Monitoring (PHQ-9) 1978 HIV Screening 1978 Hepatitis C Screening 1978 Visit: Chronic Disease, age 18+ 1978 Zoster Vaccines (1 of 2) 1997 HPV Vaccines (1 - Risk 3-dose SCDM series) 2005 Hepatitis A Vaccines (2 of 2 - Risk 2-dose series) 06/16/2012 12/17/2011 Pneumococcal vaccine (0-49 years) (2 of 2 - PCV) 12/16/2012 12/17/2011 DTaP,Tdap,and Td Vaccines (3 - Td or Tdap) 12/16/2021 12/17/2011, 04/20/2006 COVID-19 Vaccine ( season) 2023 12/17/2022, 12/31/2020, 05/28/2020, Additional history exists Influenza Vaccine (#1) 2023 , 01/10/2021, 10/29/2019, Additional history exists Depression Monitoring (PHQ-9 for quality tracking) 02/29/2024 Office Visit for Blood Pressure Check / Re-check 04/27/2024 01/27/2024 Creatinine Level (Kidney Function Test) 04/20/2025 04/20/2024, 04/06/2023, 02/23/2023, Additional history exists Potassium Level 04/20/2025 04/20/2024, 02/0 08/2023, 02/23/2023, Additional history exists Sodium Level 04/20/2025 04/20/2024, 02/0 08/2023, 02/23/2023, Additional history exists Lipid (Cholesterol) Screening 03/16/2026 03/16/2021, 04/25/2020, 04/24/2020, Additional history exists Colonoscopy 05/25/2026 05/25/2021, 04/29, 05/25/2021, Additional history exists Colorectal Cancer Surveillance 05/25/2026 Fasting Glucose for Diabetes Screening 04/20/2027 04/20/2024, 04/06/2023, 02/23/2023, Additional history exists Hepatitis B Vaccines Completed 04/20/2006, 10/21/1997, 09/16/1997 Hepatitis B Screening Completed 04/20/2024 IPV Vaccines Aged Out No longer eligi ble based on patient's age to complete this topic Procedures Procedure Name Priority Date/Time Associated Diagnosis Comments C-REACTIVE PROTEIN (CRP), S/P Routine 04/20/2024 7:19 AM TECHNICAL SOLUTIONS ENGINEER VITAMIN B12 ASSAY, S Routine 04/20/2024 7:19 AM TECHNICAL SOLUTIONS ENGINEER FERRITIN, S Routine 04/20/2024 7:19 AM TECHNICAL SOLUTIONS ENGINEER IRON AND TOT IRON-BINDING CAPACITY, S/P Routine 04/20/2024 7:19 AM TECHNICAL SOLUTIONS ENGINEER CBC WITH DIFFERENTIAL, B Routine 04/20/2024 7:19 AM TECHNICAL SOLUTIONS ENGINEER COMPREHENSIVE METABOLIC PANEL, S/P Routine 04/20/2024 7:19 AM TECHNICAL SOLUTIONS ENGINEER QUANTIFERON-TB GOLD PLUS, B Routine 04/20/2024 7:19 AM TECHNICAL SOLUTIONS ENGINEER HEPATITIS B SURFACE ANTIGEN Routine 04/20/2024 7:19 AM TECHNICAL SOLUTIONS ENGINEER COLONOSCOPY Routine 05/25/2021 12:20 PM CDT Crohn's Disease (HCC) LIPID PANEL, S Routine 03/16/2021 12:29 PM TECHNICAL SOLUTIONS ENGINEER Screening Lipid from Last 3 Months or Most Recently Relevant to Health Maintenance Results * QuantiFERON-Tb Gold Plus, Blood (04/20/2024 7:19 AM TECHNICAL SOLUTIONS ENGINEER) [facility] EXT QuantiFERON-TB Gold Result negative negative SCANNED REPORT 04/20/2024 7:19 AM TECHNICAL SOLUTIONS ENGINEER Narrative SCANNED REPORT - 04/26/2024 8:10 AM TECHNICAL SOLUTIONS ENGINEER Source result document attached to Order Number [id number] ([id number]) dated 04/20/2024. External results verified in Extract by Katarina Faust on 04/26/2024 at 08:08 AM. us Ordering Provider External M.DValeriano LAB MICROBIOLOGY - BLOOD ORDERABLES Final Result SCANNED REPORT * Iron and Total Iron-Binding Capacity (04/20/2024 7:19 AM TECHNICAL SOLUTIONS ENGINEER) [facility] EXT Iron 120 50 - 180 mcg/dL SCANNED REPORT EXT Total Iron Binding Capacity 407 250 - 425 mcg/dL SCANNED REPORT 04/20/2024 7:19 AM TECHNICAL SOLUTIONS ENGINEER Narrative [facility] - 04/26/2024 8:10 AM TECHNICAL SOLUTIONS ENGINEER Source result document attached to Order Number [id number] ([id number]) dated 04/20/2024. External results verified in Extract by Katarina Faust on 04/26/2024 at 08:03 AM. us Ordering Provider External M.DValeriano LAB BLOOD ADD-ON Final Result [facility] NA SCANNED REPORT * Hepatitis B Surface Antigen (04/20/2024 7:19 AM TECHNICAL SOLUTIONS ENGINEER) [facility] EXT Hepatitis B Surface Ag NON-REACTI VE NON-REACTI VE SCANNED REPORT 04/20/2024 7:19 AM TECHNICAL SOLUTIONS ENGINEER Narrative SCANNED REPORT - 04/26/2024 8:10 AM TECHNICAL SOLUTIONS ENGINEER Source result document attached to Order Number [id number] ([id number]) dated 04/20/2024. External results verified in Extract by Katarina Faust on 04/26/2024 at 08:03 AM. us Ordering Provider External M.DValeriano LAB MICROBIOLOGY - BLOOD ORDERABLES Final Result SCANNED REPORT * CBC with Differential, Blood (04/20/2024 7:19 AM TECHNICAL SOLUTIONS ENGINEER) [facility] EXT Leukocytes 6.6 3.8 - 10.8 Thousand/u L SCANNED REPORT EXT RBC 5.17 4.20 - 5.80 Million/uL SCANNED REPORT EXT Hemoglobin 16.1 13.2 - 17.1 g/dL SCANNED REPORT EXT Hematocrit 47.1 38.5 - 50.0 % SCANNED REPORT EXT MCV 91.1 80.0 - 100.0 fL SCANNED REPORT EXT RDW 13.3 11.0 - 15.0 % SCANNED REPORT 04/20/2024 7:19 AM TECHNICAL SOLUTIONS ENGINEER Narrative [facility] - 04/26/2024 8:10 AM TECHNICAL SOLUTIONS ENGINEER Source result document attached to Order Number [id number] ([id number]) dated 04/20/2024. External results verified in Extract by Katarina Faust on 04/26/2024 at 08:03 AM. us Ordering Provider External M.DValeriano LAB BLOOD ADD-ON Final Result [facility] NA SCANNED REPORT * CRP (C-Reactive Protein) (04/20/2024 7:19 AM TECHNICAL SOLUTIONS ENGINEER) [facility] EXT C-Reactive Protein Quantative <3.0 <8.0 mg/L SCANNED REPORT 04/20/2024 7:19 AM TECHNICAL SOLUTIONS ENGINEER Narrative [facility] - 04/26/2024 8:10 AM TECHNICAL SOLUTIONS ENGINEER Source result document attached to Order Number [id number] ([id number]) dated 04/20/2024. External results verified in Extract by Katarina Faust on 04/26/2024 at 08:03 AM. us Ordering Provider External M.DValeriano LAB BLOOD ADD-ON Final Result Performing Organization Address City/[facility]/ZIP Co de Phone Number [facility] NA SCANNED REPORT * Ferritin (04/20/2024 7:19 AM TECHNICAL SOLUTIONS ENGINEER) EXT Ferritin, S 63 38 - 380 ng/mL SCANNED REPORT 04/20/2024 7:19 AM TECHNICAL SOLUTIONS ENGINEER Narrative [facility] - 04/26/2024 8:10 AM TECHNICAL SOLUTIONS ENGINEER Source result document attached to Order Number [id number] ([id number]) dated 04/20/2024. External results verified in Extract by Katarina Faust on 04/26/2024 at 08:03 AM. us Ordering Provider External MRodney LAB BLOOD ADD-ON Final Result Performing Organization Address [facility] Co de Phone Number [facility] NA SCANNED REPORT * Vitamin B12 Assay (04/20/2024 7:19 AM TECHNICAL SOLUTIONS ENGINEER) EXT Vitamin B12 Assay, S 292 200 - 1,100 pg/mL SCANNED REPORT 04/20/2024 7:19 AM TECHNICAL SOLUTIONS ENGINEER Narrative [facility] - 04/26/2024 8:10 AM TECHNICAL SOLUTIONS ENGINEER Source result document attached to Order Number [id number] ([id number]) dated 04/20/2024. External results verified in Extract by Katarina Faust on 04/26/2024 at 08:03 AM. us Ordering Provider External M.DValeriano LAB BLOOD ADD-ON Final Result Performing Organization Address City/[facility]/ZIP Co de Phone Number [facility] NA SCANNED REPORT * (ABNORMAL) Comprehensive Metabolic Panel (04/20/2024 7:19 AM TECHNICAL SOLUTIONS ENGINEER) EXT Glucose 98 65 - 99 mg/dL [...] 46 U/L SCANNED REPORT 04/20/2024 7:19 AM TECHNICAL SOLUTIONS ENGINEER Narrative SCANNED REPORT - 04/26/2024 8:10 AM TECHNICAL SOLUTIONS ENGINEER External results verified in Extract by Katarina Faust on 04/26/2024 at 08:03 AM. Additional tests on scanned report. us Ordering Provider External M.D. LAB BLOOD ADD-ON Final Result SCANNED REPORT * (ABNORMAL) Lipid Panel (03/16/2021 12:29 PM TECHNICAL SOLUTIONS ENGINEER) Cholesterol, Total 254(H) mg/dL 2021 1:10 PM TECHNICAL SOLUTIONS ENGINEER OWAT Comment: ----REFERENCE VALUE---- Desirable: < 200 Borderline high: 200 - 239 High: > or = 240 Triglycerides 295(H) mg/dL 03/16/2021 1:10 PM TECHNICAL SOLUTIONS ENGINEER [employer]AT Comment: ----REFERENCE VALUE---- Normal: <150 Borderline high: 150-199 High: 200-499 Very high: > or =500 Cholesterol, HDL 78 >=40 mg/dL 03/16/19 1:10 PM TECHNICAL SOLUTIONS ENGINEER OWAT Calculated LDL 117 mg/dL 03/16/2021 1:10 PM TECHNICAL SOLUTIONS ENGINEER [employer]AT Comment: ----REFERENCE VALUE---- Desirable: <100 mg/dL Above Desirable: 100-129 mg/dL Borderline High: 130-159 mg/dL High: 160-189 mg/dL Very High: >=190 mg/dL Cholesterol, Non-HDL, Calculated 176(H) mg/dL 03/16/2021 1:10 PM TECHNICAL SOLUTIONS ENGINEER [employer]AT Comment: ----REFERENCE VALUE---- Desirable: <130 Above Desirable: 130-159 Borderline high: 160-189 High: 190-219 Very high: > or =220 Blood (Blood, Venous) 03/16/2021 12:29 PM TECHNICAL SOLUTIONS ENGINEER 03/16/2021 12:35 PM TECHNICAL SOLUTIONS ENGINEER us Tristan Burnham D.O. LAB BLOOD ADD-ON Final Res ult [facility] [address], [place] [address], [facility] [place] [address] [place] [address] from Last 3 Months or Most Recently Relevant to Health Maintenance Insurance [employer] Care Teams Wool Mixer Relationship Specialty Start Date End Date Tristan Burnham D.O. [address] [place] [phone] PCP - General Internal Medicine 12/12/17
--- OUTSIDE RECORDS SUMMARY | 2024-05-02 12:58 | XMS_ITS | Encounter Summary ---
Author Organization [facility] Address [address] [place] [address] Care Team Providers Care Pigs Feet Cleaner Name Role Phone Tristan Burnham D.O. Primary Care Provider [phone]- [phone] Reason for Referral * Outpatient (Routine) - Authorized Specialty Diagnoses / Procedures Referred By Contac t Referred To Contact Dermatology Diagnoses Crohn's Disease (HCC) Melanoma Trunk (HCC) Aysha Camacho M.B., B.Ch., B.A.O. [address] [place] [address] Phone: tel: fax: [facility] Referral ID Status Reason Start Date Expiration Date V isits Requested Visits Authorized [id number] Authorized 03/22/2024 09/21/2025 1 1 ECTIONS LIEUTENANT * Outpatient (Routine) - Authorized Specialty Diagnoses / Procedures Referred By Contac t Referred To Contact Diagnoses Crohn's Disease (HCC) Procedures Colonoscopy Aysha Camacho M.B., B.Ch., B.A.O. [address] [place] [address] Phone: tel: fax: [facility] Referral ID Status Reason Start Date Expiration Date V isits Requested Visits Authorized [id number] Authorized 03/22/2024 06/22/2025 1 1 ECTIONS LIEUTENANT * MRI/CAT/PET Scan (Routine) - Pending Review Specialty Diagnoses / Procedures Referred By Contac t Referred To Contact Radiology Diagnoses Pain Periumbilical Procedures CT Abdomen Pelvis Enterography without and with IV Contrast Aysha Camacho M.B., B.Ch., B.A.O. [address] [place] [phone] Phone: tel: fax: [facility] Referral ID Status Reason Start Date Expiration Date V isits Requested Visits Authorized [id number] Pending Review 03/22/2024 06/22/2025 1 1 ECTIONS LIEUTENANT * Outpatient (Routine) - Authorized Specialty Diagnoses / Procedures Referred By Contact Referred To Contact Gastroenterology and Hepatology Aysha Camacho M.B., B.Ch., B.A.O. [address] [place] [phone] Phone: tel: fax: [facility] Referral ID Status Reason Start Date Expiration Date V isits Requested Visits Authorized [id number] Authorized 03/22/2024 09/21/2025 1 1 ECTIONS LIEUTENANT Reason for Visit * Outpatient (Routine) - Closed Specialty Diagnoses / Procedures Referred By Contact Referred To Contact Gastroenterology and Hepatology Charisma Niño M.D. [address] [place] [phone] Phone: tel: fax: [facility] Referral ID Status Reason Start Date Expiration Date Visits Re quested Visits Authorized [id number] Closed 03/12/2024 09/11/2025 1 1 Encounter Details Date Type Department Care Team (Latest Contact Info) Description 03/22/2024 1:00 PM CORRECTIONS LIEUTENANT Telemedicine Division of Gastroenterology in [place], [place] [address] [place] [address] Aysha Camacho M.B., B.Ch., B.A.O. [address] [place] [phone] Crohn's Disease (HCC) (Primary Dx); Melanoma Trunk (HCC); Pain Periumbilical Social History Tobacco Use Types Packs/Day Years Used Date Smoking Tobacco: Former Smokeless Tobacco: Former Chew Alcohol Use Standard Drinks/Week Comments Yes 4 (1 standard drink = 0.6 oz pur e alcohol) Na [facility] [employer] Answer Date Recorded In the past 12 months has e [employer], gas, oil, or water nap- Naturally Attached Parents threatened to shut off services in your [...] week 04/30/2021 How often do you attend [facility] or church services? Never 04/30/2021 Do you belong to any clubs o r organizations such as gnosticist groups, unions, fraternal or athletic groups, or [...] Answer Date Recorded PHQ-2 Score 0 04/30/2021 [facility] - Occupational Stress Questionnaire Answer Date [...] your living situation today? I have a [facility] place to live 03/21/2024 Education Answer Date Recorded What is the highest level of school you have completed or the highest degree you have received? Bachelor's degree (e.g., BA, AB, BS) 08/07/2019 Sex and Gender Information Value Date Recorded Sex Assigned at Male 02/09/2017 7:38 PM CORRECTIONS LIEUTENANT Legal Sex Male 4:30 PM CORRECTIONS LIEUTENANT Gender Identity Male 02/09/2017 7:38 PM CORRECTIONS LIEUTENANT Sexual Orientation Straight 02/09/2017 7: 38 PM CORRECTIONS LIEUTENANT documented as of this encounter Patient Instructions * Attachments The following attachments cannot be sent through Care Everywhere. * Treatment of Inflammatory Bowel Disease: Interleukin-23 Inhibitors documented in this encounter Consult Notes * Aysha Camacho M.B., B.Ch., B.A.O. - 03/22/2024 1:00 PM CST INFLAMMATORY BOWEL DISEASE CONSULTATION DIAGNOSIS: CROHN'S DISEASE LOCAL METAL HANGING SUPERVISOR: Transfer of care in IBD Clinic SUPERVISING BOMB LOADER: Dr. Lazar SUBJECTIVE REASON FOR CONSULTATION: Orion Garcia is a 43 y.o. who presents from [place], [place] for consultation in IBD clinic for Crohn's disease. Past medical history is notable for kidney stones, depression, hypertension, GERD. The patient was last seen by Dr. Cain in IBD Clinic in October of 2022. 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, complicated by postoperative bleeding ED visits / Hospitalizations: None within the last 6 months Extraintestinal manifestations: kidney stones Colon cancer or dysplasia history: no Inflammatory Bowel Disease (IBD) Symptom Questionnaire how many bowel movements do you typically have each day: 5 average number of bowel movements that you had in a single day: 5 average number of liquid stools in a single day: 5 describe the frequency of your stools: >4 stools/day more than normal describe the consistency of most of your bowel movements: liquid how much rectal bleeding: visible blood in stool less than half the time how much abdominal pain: mild how much urgency have you had before bowel movements: Mild. I need to get to the bathroom within 5-15 minutes.. have you awoken at night to move your bowels: no have you had leakage of you stool while sleeping: yes have you had any leakage of stool while you were awake: yes general well-being over the last week: slightly under par past six months have you had an infection: no vaccinations since your last visit: no have you used tobacco in any form: no have you taken narcotic pain medications: no how many days have you missed work or school: 0 how many days have you been hospitalized: 0 how many days have you visited a hospital emergency department: 0 have you unintentionally lost weight: no IBD medication history: - a 5 ASA - following surgery in 2014, he was initiated on infliximab with current dosing 5 milligrams/kilogram every 6 weeks SOCIAL HISTORY: 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 Drinks 4-5 drinks nightly. Former smoker quit in 2014 No e cigarettes or vaping. OBJECTIVE PHYSICAL EXAMINATION: Video visit, no physical examination was performed DIAGNOSTICS Small bowel imagin10/29/2022 EXAM: CT ABDOMEN PELVIS ENTEROGRAPHY WITH IV CONTRAST COMPARISON: CT abdomen and pelvis enterography 10/09/2019 FINDINGS: Postoperative changes of ileocecectomy with side to side ileo-ascending colostomy. No evidence of inflammation at the anastomosis, the anastomosis appears widely patent. The remaining small bowel is normal in appearance with normal caliber, wall thickness and enhancement. Normal small bowel fold pattern. No definite findings of inflammation in the colon. The distal sigmoid colon and rectum appear mildly hyperenhancing and irregular, however this finding should be considered equivocal and may be better assessed at endoscopy if needed. Mesenteric vasculature is patent. No lymphadenopathy. No evidence of penetrating or perianal disease. Hepatic steatosis. 3mm low-density lesion in the right liver may represent a cyst or cavernous hemangioma, stable. Normal gallbladder. No biliary ductal dilatation. The spleen, pancreas, and adrenal glands are unremarkable. Stable small complex cyst in the right kidney with adjacent scarring. Tiny nonobstructing left kidney stones, stable. Small fat-containing right inguinal hernia. IMPRESSION: 1. No evidence of active small bowel Crohn's disease. 2. The distal sigmoid colon and rectum appear mildly hyperenhancing. However, this finding may be related to incomplete distention and should be considered equivocal. This would be better evaluated with endoscopy if needed. Colonoscopy: 04/2021 Post-op Diagnoses: - Patent functional end-to-end ileo-colonic anastomosis, characterized by healthy appearing mucosa, as photodocumented. - The examined portion of the neoterminal ileum was normal. Biopsied. - The examination was otherwise normal on direct and retroflexion views. The colonic mucosa was completely normal throughout its extent. - Biopsies were taken with a cold forceps for histology in the entire colon as described. FINAL DIAGNOSIS A. Small bowel, terminal ileum, blas-terminal, endoscopic biopsy: Ileal mucosa without diagnostic abnormality. No granulomas. B. Colon, cecum, endoscopic biopsy: Colonic mucosa without diagnostic abnormality. No dysplasia. C. Colon, transverse, endoscopic biopsy: Colonic mucosa without diagnostic abnormality. No dysplasia. D. Colon, descending, endoscopic biopsy: Colonic mucosa without diagnostic abnormality. No dysplasia. E. Colon, rectum, sigmoid, endoscopic biopsy: Colonic mucosa without diagnostic abnormality. No dysplasia. 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 male from [place], [place] who presents for assessment of Crohn's disease. This visit note will be sent to supervising oracle bpm consultant Dr. Lazar for further review. Past medical history is notable for kidney stones, depression, hypertension, GERD. The patient was last seen by Dr. Cain in IBD Clinic in October of 2022. 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 The patient was diagnosed with Crohn's disease in 1998. He has mostly had ileal disease complicatedby stricturing and penetrating phenotype. Initial medication was 5-ASA. 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 This was complicated by bleeding in the postoperative setting. He resumed infliximab monotherapy following surgery, and achieved clinical remission. He is also intermittently been on budesonide. At this time the patient is having increased bowel movements, associated with some mild urgency, and mild abdominal pain. This is not largely different from his baseline, but he is worried that he may be starting to have recurrence of disease activity. He has also had a change in his job, which has made it difficult for him to take days off to attend to his health. His last CT enterography in 2022 demonstrated no evidence of active small-bowel disease, though thedistal sigmoid colon and rectum appeared mildly hyperenhancing. His last colonoscopy was completed in 2021 which demonstrated endoscopic remission, without presence of dysplasia. Notably, the patient was scheduled for this urgent visit because he was no longer having insurance approval for his infliximab as he had not seen a provider in over a year. We discussed at length today that due to the presence of melanoma which was diagnosed since his last visit in IBD Clinic, we would recommend discontinuation of infliximab, based on the [employer] clinical practice update, due to the potential increased risk associated with anti TNF therapy and melanoma. In terms of alternate medications, due to the patient's high-risk Crohn's disease behavior p reviously, we would likely recommend continued biologic therapy. Some other options for us to consider include anti integrin agent such as vedolizumab, or anti IL 23 agents such as ustekinumab or risankizumab. We discussed that Skyrizi (risankizumab) would be my top choice, due to the sequence trial which showed increased benefit over ustekinumab, for moderate to severe Crohn's disease. In this study melanoma was not reported in either treatment group. Prior to prescribing any new medical therapy, the patient is due for annual IBD labs, and will needrepeat pre biologic labs. I will send the patient a prescription on the portal for him to have thiscompleted a lab of his choosing close to his job. He will let us know once these are completed, andif satisfactory I will send a prescription for Skyrizi infusions to [facility] and on the body injector to his specialty pharmacy. Additionally given the patient's symptoms he is due for colonoscopy, with anesthesia with surveillance biopsies. We would also like a CT enterography to rule out recurrence of disease as we are changing medical therapy. Additionally I strongly urged the patient to return to Dermatology for a skin check, he is overdue for his skin check which should be occurring every 6 months following his melanoma diagnosis. He is in agreement with the plan, and I will follow up with him in IBD Clinic once testing is completed. RECOMMENDATIONS: STOP Infliximab in the setting of malignant melanoma Complete annual IBD labs and pre-biologic labs (CBC, CMP, CRP, Vitamin D, Vitamin B12, Iron/Ferritin, Quantiferon Gold, Hepatitis B surface antigen, Hepatitis B surface antibody, Hepatitis B c total antibody). A prescription was sent to the patient on the portal following our visit. Once these labsare received I will place an order for Skyrizi infusions in [facility] and Skyrizi OBI to specialty pharmacy. The patient will notify me when these tests results. CT Enterography Colonoscopy with anesthesia to assess for surveillance (overdue) Referral back to dermatology for skin check given melanoma history Pending liver tests may need to consider Fibroscan and further work-up. Discussed cutting back on alcohol significantly would be beneficial for overall health. IBD Health care maintenance will be discussed in further detail at the next visit Provided education on risankizumab-rzaa Brand name: SKYRIZI ?? Mechanism of Action: Interleukin-23 Antagonist Route of Administration and dosin mg IV infusions (over about 1 hour) at weeks 0, 4, and 8, then 360 mg subcutaneous injection at week 12 and then every 8 weeks ongoing Missed dose: Do not miss doses. If there is a conflict, preferred to get dose a couple days early than late. If unpreventable disruption (e.g. blizzard), get missed dose as soon as possible. Onset of action: 4 weeks to a couple months Duration of therapy: chronic Storage: Refrigerate injections. Protect from light by storing in original package until time of use. Remove from fridge 45 to 90 minutes prior to injection. Common side effects include: Induction: upper respiratory infection, headache, joint pain Maintenance: joint pain, injection site reaction, abdominal pain, anemia, fever, back pain, urinarytract infection Serious side effects include: hypersensitivity, infections, tuberculosis, hepatoxicity Reviewed device technique with on-body injector. Rotate injection sites. Video available on Near Page. Resources on electrical instrumentation technician's website include financial assistance and more Enroll in [employer] Savings Program Counseling: Biologics: We discusses the risks and benefits of Skyrizi (Risankizumab) including the risk of serious infections, skin cancer and lymphoma. We discussed the importance of updating his immunizations with his primary provider. He should avoid live vaccinations. We recommend an annual skin exam for skin cancer screening by a tilting head band sawyer. IBD Treatment Monitoring: Biologics (Anti-TNF, Vedolizumab, Ustekinumab): CBC, liver enzymes and creatinine at least once a year FOLLOW UP: After testing is complete. Dr. Aysha Camacho Advanced Inflammatory Bowel Disease Fellow Division of Gastroenterology & Hepatology [place], [place] ECTIONS LIEUTENANT documented in this encounter Miscellaneous Notes * Addendum Note - Aysha Camacho M.B., BriceCh., B.A.O. - 03/22/2024 1:00 PM CSTAddended by: AYSHA CAMACHO on: 03/22/2024 03:03 PM Modules accepted: Orders ECTIONS LIEUTENANT documented in this encounter Plan of Treatment Upcoming Encounters Date Type Department Care Team (Late st Contact Info) Description 05/29/2024 12:00 PM CDT Appointment Department of Laboratory Medicine and Pathology, [facility], in [place], [place] [address] [place] [address] Aysha Camacho M.B., B.Ch., B.A.O. [address] [place] [phone] 05/29/2024 2:00 PM CDT Appointment Department of Radiology, [facility], in [place], [place] [address] [place] [phone] Aysha Camacho M.B., B.Ch., B.A.O. [address] [place] [phone] 05/30/2024 9:45 AM CDT Appointment Division of Gastroenterology in [place], [place] [address] [place] [phone] Aysha Camacho M.B., B.Ch., B.A.O. [address] [place] [phone] 06/07/2024 10:00 AM CDT Telemedicine Division of Gastroenterology in [place], [place] [address] [place] [address] Aysha Camacho M.B., B.Ch., B.A.O. [address] [place] [phone] Scheduled Orders Name Type Priority Associated Diagnoses Orde r Schedule CT Abdomen Pelvis Enterography without and with IV Contrast Imaging RAD - Routine (most inpatients and all outpatients) Pain Periumbilical Expected: 03/22/2024, Expires: 06/20/2025 Colonoscopy GI Routine Crohn's Disease (HCC) Expected: 03/22/2024, Expires: 06/20/2025 Scheduled Referrals Name Type Priority Associated Diagnoses Order Schedule Gastroenterology and Hepatology office visit (clinic) Outpatient Referral Routine Expected: 03/22/2024, Expires: 06/20/2025 Dermatology - Skin check consult (clinic) Outpatient Referral Routine Crohn's Disease (HCC) Melanoma Trunk (HCC) Expected: 03/22/2024, Expires: 06/20/2025 documented as of this encounter Procedures Procedure Name Priority Date/Time Associated Diagnosis Comments QUANTIFERON-TB GOLD PLUS, B Routine 04/20/2024 7:19 AM CORRECTIONS LIEUTENANT documented in this encounter Results * QuantiFERON-Tb Gold Plus, Blood (04/20/2024 7:19 AM CORRECTIONS LIEUTENANT) EXT QuantiFERON-TB Gold Result negative negative SCANNED REPORT 04/20/2024 7:19 AM CORRECTIONS LIEUTENANT Narrative SCANNED REPORT - 04/26/2024 8:10 AM CORRECTIONS LIEUTENANT Source result document attached to Order Number [id number] ([id number]) dated 04/20/2024. External results verified in Extract by Katarina Faust on 04/26/2024 at 08:08 AM. us Ordering Provider External M.DValeriano LAB MICROBIOLOGY - BLOOD ORDERABLES Final Result SCANNED REPORT documented in this encounter Visit Diagnoses Diagnosis Crohn's Disease (HCC)- Primary Melanoma Trunk (HCC) Pain Periumbilical documented in this encounter Additional Health Concerns Assessment Noted Time PHQ-9 Depression Total Score: 2 05/01/19 22 8:11 AM CORRECTIONS LIEUTENANT documented as of this encounter Care Teams Pigs Feet Cleaner Relationship Specialty Start Date End Date Tristan Burnham D.O. [address] [place] [phone] PCP - General Internal Medicine 12/12/17 documented as of this encounter
--- OUTSIDE RECORDS SUMMARY | 2024-05-02 12:58 | XMS_ITS | Encounter Summary ---
Author Organization [facility] Address [address] [place] [address] Care Team Providers Care [email or web address] Android Developer Name Role Phone Tristan Burnham D.O. Primary Care Provider +1- [phone] Encounter Details Date Type Department Care Team (Late st Contact Info) Description 03/09/2024 Orders Only Department of Infusion Therapy in [place], [place] [address], [place] [address] Loy Lara, RValerianoNValeriano [address] [place] [address] Social History Tobacco Use Types Packs/Day Years Used Date Smoking Tobacco: Former Smokeless Tobacco: Former Chew Alcohol Use Standard Drinks/Week Comments Yes 4 (1 standard drink = 0.6 oz pur e alcohol) Na [facility] Utilities Answer Date Recorded In the past 12 months has [employer], gas, oil, or water [employer] threatened to shut off services in your [...] How often do you attend chur or sikh services? Never 04/30/2021 Do you belong to [...] Answer Date Recorded PHQ-2 Score 0 04/30/2021 [facility] - [...] your living situation today? I have a [facility] place to live 03/21/2024 Education Answer Date Recorded What is the highest level of school you have completed or the highest degree you have received? Bachelor's degree (e.g., BA, AB, BS) 08/07/2019 Sex and Gender Information Value Date Recorded Sex Assigned at Male 02/09/2017 7:38 PM ORDER ADMINISTRATOR Legal Sex Male 4:30 PM ORDER ADMINISTRATOR Gender Identity Male 02/09/2017 7:38 PM ORDER ADMINISTRATOR Sexual Orientation Straight 02/09/2017 7: 38 PM ORDER ADMINISTRATOR documented as of this encounter Plan of Treatment Upcoming Encounters Date Type Department Care Team (Late st Contact Info) Description 05/29/2024 12:00 PM CDT Appointment Department of Laboratory Medicine and Pathology, [facility], in [place], [place] [address] [place] [address] Aysha Brantley M.B., B.Ch., B.A.O. [address] [place] [address] 05/29/2024 2:00 PM CDT Appointment Department of Radiology, [facility], in [place], [place] [address] [place] [phone] Aysha Brantley M.B., B.Ch., B.A.O. [address] [place] [phone] 05/30/2024 9:45 AM CDT Appointment Division of Gastroenterology in [place], [place] [address] [place] [phone] Aysha Brantley M.B., B.Ch., B.A.O. [address] [place] [phone] 06/07/2024 10:00 AM CDT Telemedicine Division of Gastroenterology in [place], [place] [address] [place] [phone] Aysha Brantley M.B., B.Ch., B.A.O. [address] [place] [phone] documented as of this encounter Visit Diagnoses Not on filedocumented in this encounter Additional Health Concerns Assessment Noted Time PHQ-9 Depression Total Score: 2 05/01/19 22 8:11 AM ORDER ADMINISTRATOR documented as of this encounter Care Teams J2Ee Android Developer Relationship Specialty Start Date End Date Tristan Burnham D.O. [address] [place] [phone] PCP - General Internal Medicine 12/12/17 documented as of this encounter
--- NOTE | 2024-05-02 13:54 | ED_ITS ---
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 This is on the right side of the midline. It is very well approximated, he came in just to ?make sure it is okay?. He had no loss conscious. He has no headache. He has no focal neurologic deficit. He states he hit into a door with there is no potential for foreign body. He has had no neurologic complaints or symptoms Related Data Home Medications ?Medication ?Instructions ?Recorded ?Confirmed cetirizine 10 mg tablet 10 mg PO DAILY 01/03/23 05/02/24 chlorthalidone 25 mg tablet 25 mg PO DAILY 01/03/23 05/02/24 fluoxetine 10 mg capsule 10 mg PO DAILY 01/03/23 05/02/24 fluoxetine 20 mg capsule 20 mg PO DAILY 01/03/23 05/02/24 lisinopril 40 mg tablet 40 mg PO DAILY 01/03/23 05/02/24 loperamide 2 mg capsule 2 mg PO 3XD PRN diarrhea 01/03/23 01/10/23 Previous Rx's ?Medication ?Instructions ?Recorded cephalexin 500 mg capsule 500 mg PO QID #20 caps 05/02/24 Allergies Allergy/AdvReac Type Severity Reaction Status Date / Time No Known Allergies Allergy Verified 05/02/24 13:04 Review of Systems Status of ROS: Reports: 6 or more systems reviewed and unremarkable except as noted in History and below Exam Narrative: Exam Narrative: Objective: Vital signs were slightly elevated systolic pressure but otherwise unremarkable He has got a vertical 2 cm laceration that is well adhered and minimally she has be well adhered and good hemostasis vertical from the junction of the upper nose and brow just the right of midline. There is no palpable step-off in the area rest of HEENT is unremarkable Procedure: After sterile scrub the wound was covered with Dermabond. Patient was given Keflex 500 orally. He will get it updated Tdap Const: Vital Signs, click to edit/add: Vital Signs - 24 hr 05/02/24 12:58 Temperature 98.3 F Pulse Rate [Pulse Oximeter] 80 Respiratory Rate 18 Blood Pressure [Ri ght Upper Arm] 159/98 H Pulse Oximetry 96 Oxygen Delivery Me thod Room Air Course Vital Signs Vital signs: Initial Vital Signs Temperature 98.3 F 05/02/24 12:58 Temperature Source Temporal Artery Scan 05/02/24 12:58 Pulse Rate 80 05/02/24 12:58 Respiratory Rate 18 05/02/24 12:58 Blood Pressure 159/98 H 05/02/24 12:58 Blood Pressure Mean 118 H 05/02/24 12:58 Blood Pressure Position Sitting 05/02/24 12:58 Pulse Oximetry 96 05/02/24 12:58 Oxygen Delivery Method Room Air 05/02/24 12:58 Vital Signs Temperature 98.3 F 05/02/24 12:58 Pulse Rate 80 05/02/24 12:58 Respiratory Rate 18 05/02/24 12:58 Blood Pressure 159/98 H 05/02/24 12:58 Pulse Oximetry 96 05/02/24 12:58 Oxygen Delivery Method Room Air 05/02/24 12:58 Temperature 98.3 F 05/02/24 12:58 Pulse Rate 80 05/02/24 12:58 Respiratory Rate 18 05/02/24 12:58 Blood Pressure 159/98 H 05/02/24 12:58 Pulse Oximetry 96 05/02/24 12:58 Oxygen Delivery Method Room Air 05/02/24 12:58 Medications Administered Medications: Discontinued Medications Generic Name Dose Route Start Last Admin Trade Name Freq PRN Reason Stop Dose Admin Cephalexin HCl 500 mg 05/02/24 13:54 05/02/24 14:11 Cephalexin 500 Mg Capsule PO 05/02/24 13:55 500 mg ONCE ONE Administration Diphtheria/Tetanus/Acell Pertussis 0.5 ml 05/02/24 13:54 05/02/24 14:32 Tetanus/Diphth/Pertussis 0.5 Ml Syringe IM 05/02/24 13:55 0.5 ml .ONCE ONE Administration Medical Decision Making MDM Narrative Medical decision making narrative: 43-year-old male with a laceration to the forehead that happened last night about 12 hours ago, appears well adhered. Good hemostasis. At this point we simply covered with Dermabond after cleansing and will give him Keflex 500 q.i.d. x5 days, update his Tdap. Watch for redness infection, light activity over the next week. He was comfortable this plan. Return as needed. Discharge Plan Discharge Clinical Impression: Facial laceration Patient Disposition: Home, Self-Care Condition: Stable Additional Instructions: Keep the wound dry for the next 72 hours if possible, watch for redness infection, Keflex 500 q.i.d. x5 days, Tylenol Advil as needed, avoid exertion such as exercise or contact activity for the next week. Recheck as needed. Activity Level: Light activity Discharge Diet: Regular Prescriptions: New cephalexin 500 mg capsule 500 mg PO QID Qty: 20 0RF No Action loperamide 2 mg capsule 2 mg PO 3XD PRN (Reason: diarrhea) cetirizine 10 mg tablet 10 mg PO DAILY chlorthalidone 25 mg tablet 25 mg PO DAILY fluoxetine 10 mg capsule 10 mg PO DAILY lisinopril 40 mg tablet 40 mg PO DAILY fluoxetine 20 mg capsule 20 mg PO DAILY Follow Up/Referrals: Provider,Not a Local [Non-Staff] - Stand Alone Forms: [facility] Info Instructions
--- OUTSIDE RECORDS SUMMARY | 2024-05-02 14:02 | XMS_ITS | Encounter Summary ---
Author Organization [facility] Address [address] [place] [address] Care Team Providers Care Recreation Center Director Name Role Phone Tristan Burnham D.O. Primary Care Provider [phone]- [phone] Encounter Details Date Type Department Care Team (Late st Contact Info) Description 03/09/2024 Orders Only Department of Infusion Therapy in [place], [place] [address] [address] Loy Lara, RValerianoNValeriano [address] [place] [address] Social History Tobacco Use Types Packs/Day Years Used Date Smoking Tobacco: Former Smokeless Tobacco: Former Chew Alcohol Use Standard Drinks/Week Comments Yes 4 (1 standard drink = 0.6 oz pur e alcohol) Na [facility] Utilities Answer Date Recorded In the past 12 months has [employer], gas, oil, or water [employer] threatened to shut off services in your [...] How often do you attend chur or restoration services? Never 04/30/2021 Do you belong to any clubs o r organizations such as advent groups, unions, fraternal or athletic groups, or [...] Date Recorded PHQ-2 Score 0 04/30/2021 [facility] - [...] your living situation today? I have a [facility] place to live 03/21/2024 Education Answer Date Recorded What is the highest level of school you have completed or the highest degree you have received? Bachelor's degree (e.g., BA, AB, BS) 08/07/2019 Sex and Gender Information Value Date Recorded Sex Assigned at Male 02/09/2017 7:38 PM PRINT PRODUCTION MANAGER Legal Sex Male 4:30 PM PRINT PRODUCTION MANAGER Gender Identity Male 02/09/2017 7:38 PM PRINT PRODUCTION MANAGER Sexual Orientation Straight 02/09/2017 7: 38 PM PRINT PRODUCTION MANAGER documented as of this encounter Plan of Treatment Upcoming Encounters Date Type Department Care Team (Late st Contact Info) Description 05/29/2024 12:00 PM CDT Appointment Department of Laboratory Medicine and Pathology, [facility], in [place], [place] [address] [place] [address] Aysha Brantley M.B., B.Ch., B.A.O. [address] [place] [address] 05/29/2024 2:00 PM CDT Appointment Department of Radiology, [facility], in [place], [place] [address] [place] [phone] Aysha Brantley M.B., B.Ch., B.A.O. [address] [place] [phone] 05/30/2024 9:45 AM CDT Appointment Division of Gastroenterology in [place], [place] [address] [place] [phone] Aysha Brantley M.B., B.Ch., B.A.O. [address] [place] [phone] 06/07/2024 10:00 AM CDT Telemedicine Division of Gastroenterology in [place], [place] [address] [place] [phone] Aysha Brantley M.B., B.Ch., B.A.O. [address] [place] [phone] documented as of this encounter Visit Diagnoses Not on filedocumented in this encounter Additional Health Concerns Assessment Noted Time PHQ-9 Depression Total Score: 2 05/01/19 22 8:11 AM PRINT PRODUCTION MANAGER documented as of this encounter Care Teams Recreation Center Director Relationship Specialty Start Date End Date Tristan Burnham D.O. [address] [place] [phone] PCP - General Internal Medicine 12/12/17 documented as of this encounter
--- OUTSIDE RECORDS SUMMARY | 2024-05-02 14:03 | XMS_ITS | Encounter Summary ---
Author Organization [facility] Address [address] [place] [address] Care Team Providers Care Filter Changing Technician Name Role Phone Tristan Burnham D.O. Primary Care Provider +1- [phone] Reason for Referral * Outpatient (Routine) - Authorized Specialty Diagnoses / Procedures Referred By Contact Referred To Contact Gastroenterology and Hepatology Diagnoses Elevated Liver Enzyme Abnormal, Aspartate Transaminase, Serum Glutamic-Oxaloacetic Transaminase, Alanine Transaminase Aysha Brantley M.B., B.Ch., B.A.O. [address] [place] [phone] Phone: tel:[phone] fax:[phone] [facility] Referral ID Status Reason Start Date Expiration Date V isits Requested Visits Authorized [id number] Authorized 04/30/2024 10/30/2025 1 1 LOADING MACHINE OPERATOR Encounter Details Date Type Department Care Team (Latest Contact Info) Description 04/30/2024 Results Follow-Up Division of Gastroenterology in [place], [place] [address] [place] [phone] Aysha Brantley M.B., B.Ch., B.A.O. [address] [place] [phone] Comprehensive Metabolic Panel, CBC with Differential, Blood, [...] How often do you attend chur or protestant services? Never 04/30/2021 Do you belong to any clubs o r organizations such as sikh groups, unions, fraternal or athletic groups, or [...] Answer Date Recorded PHQ-2 Score 0 04/30/2021 [facility] of Occupat ional [facility] - Occupational Stress Questionnaire Answer Date [...] your living situation today? I have a [facility] place to live 03/21/2024 Education Answer Date Recorded What is the highest level of school you have completed or the highest degree you have received? Bachelor's degree (e.g., BA, AB, BS) 08/07/2019 Sex and Gender Information Value Date Recorded Sex Assigned at Male 02/09/2017 7:38 PM JOY LOADING MACHINE OPERATOR Legal Sex Male 4:30 PM JOY LOADING MACHINE OPERATOR Gender Identity Male 02/09/2017 7:38 PM JOY LOADING MACHINE OPERATOR Sexual Orientation Straight 02/09/2017 7: 38 PM JOY LOADING MACHINE OPERATOR documented as of this encounter Miscellaneous Notes [...] surface antigen negative - QuantiFERON gold negative LOADING MACHINE OPERATOR documented in this encounter Plan of Treatment Upcoming Encounters Date Type Department Care Team (Late st Contact Info) Description 05/29/2024 12:00 PM CDT Appointment Department of Laboratory Medicine and Pathology, [place], [place] [address] [place] [phone] Aysha Brantley M.B., B.Ch., B.A.O. [address] [place] [phone] 05/29/2024 2:00 PM CDT Appointment Department of Radiology, [place], [place] [address] [place] [phone] Aysha Brantley M.B., B.Ch., B.A.O. [address] [place] [phone] 05/30/2024 9:45 AM CDT Appointment Division of Gastroenterology in [place], [place] [address] [place] [address] Aysha Brantley M.B., B.Ch., B.A.O. [address] [place] [phone] 06/07/2024 10:00 AM CDT Telemedicine Division of Gastroenterology in [place], [place] [address] [place] [phone] Aysha Brantley M.B., B.Ch., B.A.O. [address] [place] [phone] Scheduled Orders Name Type Priority Associated Diagnoses [...] Total Score: 2 05/01/19 22 8:11 AM JOY LOADING MACHINE OPERATOR documented as of this encounter Care Teams Filter Changing Technician Relationship Specialty Start Date End Date Tristan Burnham D.O. [address], [place] [phone] PCP - General Internal Medicine 12/12/17 documented as of this encounter
--- OUTSIDE RECORDS SUMMARY | 2024-05-02 14:03 | XMS_ITS | Encounter Summary ---
Author Organization [facility] Address [address] [place] [address] Care Team Providers Care Dry Wall Installations Mechanic Name Role Phone Tristan Burnham D.O. Primary Care Provider +1- [phone] Reason for Referral * Outpatient (Routine) - Authorized Specialty Diagnoses / Procedures Referred By Contac t Referred To Contact Dermatology Diagnoses Crohn's Disease (HCC) Melanoma Trunk (HCC) Aysha Camacho M.B., B.Ch., B.A.O. [address] [place] [address] Phone: tel: fax: [facility] Referral ID Status Reason Start Date Expiration Date V isits Requested Visits Authorized [id number] Authorized 03/22/2024 09/21/2025 1 1 NESS AND MARKETING TEACHER * Outpatient (Routine) - Authorized Specialty Diagnoses / Procedures Referred By Contac t Referred To Contact Diagnoses Crohn's Disease (HCC) Procedures Colonoscopy Aysha Camacho M.B., B.Ch., B.A.O. [address] [place] [address] Phone: tel: fax: [facility] Referral ID Status Reason Start Date Expiration Date V isits Requested Visits Authorized [id number] Authorized 03/22/2024 06/22/2025 1 1 NESS AND MARKETING TEACHER * MRI/CAT/PET Scan (Routine) - Pending Review Specialty Diagnoses / Procedures Referred By Contac t Referred To Contact Radiology Diagnoses Pain Periumbilical Procedures CT Abdomen Pelvis Enterography without and with IV Contrast Aysha Camacho M.B., B.Ch., B.A.O. [address] [place] [phone] Phone: tel: fax: [facility] Referral ID Status Reason Start Date Expiration Date V isits Requested Visits Authorized [id number] Pending Review 03/22/2024 06/22/2025 1 1 NESS AND MARKETING TEACHER * Outpatient (Routine) - Authorized Specialty Diagnoses / Procedures Referred By Contact Referred To Contact Gastroenterology and Hepatology Aysha Camacho M.B., B.Ch., B.A.O. [address] [place] [phone] Phone: tel: fax: [facility] Referral ID Status Reason Start Date Expiration Date V isits Requested Visits Authorized [id number] Authorized 03/22/2024 09/21/2025 1 1 NESS AND MARKETING TEACHER Reason for Visit * Outpatient (Routine) - Closed Specialty Diagnoses / Procedures Referred By Contact Referred To Contact Gastroenterology and Hepatology Charisma Niño M.D. [address] [place] [phone] Phone: tel: fax: [facility] Referral ID Status Reason Start Date Expiration Date Visits Re quested Visits Authorized [id number] Closed 03/12/2024 09/11/2025 1 1 Encounter Details Date Type Department Care Team (Latest Contact Info) Description 03/22/2024 1:00 PM BUSINESS AND MARKETING TEACHER Telemedicine Division of Gastroenterology in [place], [place] [address] [place] [address] Aysha Camacho M.B., B.Ch., B.A.O. [address] [place] [phone] Crohn's Disease (HCC) (Primary Dx); Melanoma Trunk (HCC); Pain Periumbilical Social History Tobacco Use Types Packs/Day Years Used Date Smoking Tobacco: Former Smokeless Tobacco: Former Chew Alcohol Use Standard Drinks/Week Comments Yes 4 (1 standard drink = 0.6 oz pur e alcohol) Na [facility] [employer] Answer Date Recorded In the past 12 months has e [employer], gas, oil, or water [employer] threatened to shut off services in your [...] week 04/30/2021 How often do you attend formerly [facility] or anabaptist services? Never 04/30/2021 Do you belong to any clubs o r organizations such as oriental orthodox groups, unions, fraternal or athletic groups, or [...] Answer Date Recorded PHQ-2 Score 0 04/30/2021 [facility] - [facility]ational Stress Questionnaire Answer Date [...] your living situation today? I have a [facility] place to live 03/21/2024 Education Answer Date Recorded What is the highest level of school you have completed or the highest degree you have received? Bachelor's degree (e.g., BA, AB, BS) 08/07/2019 Sex and Gender Information Value Date Recorded Sex Assigned at Male 02/09/2017 7:38 PM BUSINESS AND MARKETING TEACHER Legal Sex Male 4:30 PM BUSINESS AND MARKETING TEACHER Gender Identity Male 02/09/2017 7:38 PM BUSINESS AND MARKETING TEACHER Sexual Orientation Straight 02/09/2017 7: 38 PM BUSINESS AND MARKETING TEACHER documented as of this encounter Patient Instructions * Attachments The following attachments cannot be sent through Care Everywhere. * Treatment of Inflammatory Bowel Disease: Interleukin-23 Inhibitors documented in this encounter Consult Notes * Aysha Camacho M.B., B.Ch., B.A.O. - 03/22/2024 1:00 PM CST INFLAMMATORY BOWEL DISEASE CONSULTATION DIAGNOSIS: CROHN'S DISEASE LOCAL CANE FLUME FEEDING MACHINE OPERATOR: Transfer of care in IBD Clinic SUPERVISING CLAIM EXAMINER: Dr. Lazar SUBJECTIVE REASON FOR CONSULTATION: Orion Garcia is a 43 y.o. 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 Drinks 4-5 [...] Garcia is a 43 y.o. male from [place], [place] who presents for assessment of Crohn's disease. This visit note will be sent to supervising business system consultant Dr. Lazar for further review. Past [...] recommend discontinuation of infliximab, based on the [employer] clinical practice update, due to [...] send a prescription for Skyrizi infusions to [facility] and on the body injector to his [...] place an order for Skyrizi infusions in [facility] and Skyrizi OBI to specialty pharmacy. The [...] injector. Rotate injection sites. Video available on [employer]. Resources on group sales manager's website include financial assistance and more Enroll in [employer] Savings Program Counseling: Biologics: We discusses the risks and benefits of Skyrizi (Risankizumab) including the risk of serious infections, skin cancer and lymphoma. We discussed the importance of updating his immunizations with his primary provider. He should avoid live vaccinations. We recommend an annual skin exam for skin cancer screening by a project management consultant. IBD Treatment Monitoring: Biologics (Anti-TNF, Vedolizumab, Ustekinumab): CBC, liver enzymes and creatinine at least once a year FOLLOW UP: After testing is complete. Dr. Aysha Camacho Advanced Inflammatory Bowel Disease Fellow Division of Gastroenterology & Hepatology [place], [place] NESS AND MARKETING TEACHER documented in this encounter Miscellaneous Notes * Addendum Note - Aysha Camacho M.B., BriceCh., B.A.O. - 03/22/2024 1:00 PM CSTAddended by: AYSHA CAMACHO on: 03/22/2024 03:03 PM Modules accepted: Orders NESS AND MARKETING TEACHER documented in this encounter Plan of Treatment Upcoming Encounters Date Type Department Care Team (Late st Contact Info) Description 05/29/2024 12:00 PM CDT Appointment Department of Laboratory Medicine and Pathology, [facility], in [place], [place] [address] [place] [address] Aysha Camacho M.B., B.Ch., B.A.O. [address] [place] [phone] 05/29/2024 2:00 PM CDT Appointment Department of Radiology, [facility], in [place], [place] [address] [place] [phone] Aysha Camacho M.B., B.Ch., B.A.O. [address] [place] [phone] 05/30/2024 9:45 AM CDT Appointment Division of Gastroenterology in [place], [place] [address] [place] [phone] Aysha Camacho M.B., B.Ch., B.A.O. [address] [place] [phone] 06/07/2024 10:00 AM CDT Telemedicine Division of Gastroenterology in [place], [place] [address] [place] [address] Aysha Camacho M.B., B.Ch., B.A.O. [address] [place] [phone] Scheduled Orders Name Type Priority Associated Diagnoses [...] GOLD PLUS, B Routine 04/20/2024 7:19 AM BUSINESS AND MARKETING TEACHER documented in this encounter Results * QuantiFERON-Tb Gold Plus, Blood (04/20/2024 7:19 AM BUSINESS AND MARKETING TEACHER) EXT QuantiFERON-TB Gold Result negative negative SCANNED REPORT 04/20/2024 7:19 AM BUSINESS AND MARKETING TEACHER Narrative SCANNED REPORT - 04/26/2024 8:10 AM BUSINESS AND MARKETING TEACHER Source result document attached to Order Number [id number] ([id number]) dated 04/20/2024. External results verified in [...] Total Score: 2 05/01/19 22 8:11 AM BUSINESS AND MARKETING TEACHER documented as of this encounter Care Teams Dry Wall Installations Mechanic Relationship Specialty Start Date End Date Tristan Burnham D.O. [address] [place] [phone] PCP - General Internal Medicine 12/12/17 documented as of this encounter
--- OUTSIDE RECORDS SUMMARY | 2024-05-02 14:03 | XMS_ITS | Clinical Summary ---
Author Organization [employer] [facility] Address [address] [place] [address] Care Team Providers Care Skin Care Technician Name Role Phone Timothy Gorman DO Primary Care Provider Allergies Active Allergy Reactions Criticality Noted Date [...] Department Care Team Description 04/20/2024 7:30 AM DOOR TO DOOR SALESPERSON Orders Only [facility] [address] [place] [address] Lab, Farm [facility] 04/19/2024 Travel 04/05/2024 Refill [facility] [address] [facility] [address] Mendy Gormani, DO Refill Request (Lisinopril) 02/23/2024 Refill [facility] [address] [place] [address] Timothy Gorman, DO Refill Request (Fluoxetine, Fluoxetine) [...] on file Legal Sex Male 5:24 AM DOOR TO DOOR SALESPERSON Gender Identity Not on file Sexual Orientation Not on file 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 Not on file Not on file Not on file Obstetrics History Last Filed Vital Signs Vital Sign Reading Time Taken Comments Blood Pressure 136/71 06/21/2023 7:30 AM CDT Pulse 101 06/21/2023 7:30 AM CDT Temperature 36.4 C (97.6 F) 03/24/2023 8:39 AM DOOR TO DOOR SALESPERSON Respiratory Rate 20 06/18/2022 1:53 PM CDT [...] st Contact Info) Description 05/04/2024 3:20 PM DOOR TO DOOR SALESPERSON Office Visit [facility] [address] [place] [address] Timothy Gorman, [address] [place] [address] Health Maintenance Due Date Last Done Comments [...] CDT LIPID PANEL Routine 02/25/2010 12:02 PM DOOR TO DOOR SALESPERSON Screening for lipoid disorders ANTI HIV 1/2 Routine 02/09/2010 2:43 PM DOOR TO DOOR SALESPERSON Screening for STDs (sexually transmitted diseases) from Last 3 Months or Most Recently Relevant to Health Maintenance Results * SCAN-COLONOSCOPY (05/25/2021 12:00 AM CDT) us Scanner OTHER Final Result * LIPID PANEL (02/25/2010 12:02 PM DOOR TO DOOR SALESPERSON) CHOLESTEROL,TOTAL 186 110 - 199 mg/dL [facility] TRIGLYCERIDES 50 <150 mg/dL [facility] HDL CHOLESTEROL 71 >40 mg/dL [facility] CHOL/HDL RATIO 2.62 <4.51 [facility] LDL CHOLESTEROL 105 <131 mg/dL [facility] PATIENT STATUS Fasting [facility] Blood specimen (specimen) BLOOD SPECIMEN / Unknown 02/25/2010 12:02 PM DOOR TO DOOR SALESPERSON 02/25/2010 11:56 AM DOOR TO DOOR SALESPERSON us Junito Redd MD CHEMISTRY Final Resu lt [facility] [address] [place] [address] * HIV (02/09/2010 2:43 PM DOOR TO DOOR SALESPERSON) ANTI HIV 1/2 Non-reacti ve [facility] Blood specimen (specimen) BLOOD SPECIMEN / Unknown 02/09/2010 2:43 PM DOOR TO DOOR SALESPERSON 02/09/2010 2:35 PM DOOR TO DOOR SALESPERSON us Junito Redd MD SEND OUTS Final Resu lt [facility] INTERNAL ZIP [address] [place] [id number] from Last 3 Months or Most Recently Relevant to Health Maintenance Insurance [facility] Advance Directives * Full Code (Latest Code Status on File) Date Activated Date Inactivated Comments 03/28/2018 9:38 AM 03/28/2018 12:59 PM * Full Code Date Activated Date Inactivated Comments 11/16/2007 3:45 PM 11/21/2007 4:25 PM * Full Code Date Activated Date Inactivated Comments 02/26/2006 6:01 AM 02/27/2006 6:40 PM Care Teams Skin Care Technician Relationship Specialty Start Date End Date Timothy [place] [address] PCP - General Family Practice 02/09/23
--- OUTSIDE RECORDS SUMMARY | 2024-05-02 14:03 | XMS_ITS | Encounter Summary ---
Author Organization [facility] Address [address] [place] [address] Care Team Providers Care Statue Maker Name Role Phone Tristan Burnham D.O. Primary Care Provider [phone]- [phone] Encounter Details Date Type Department Care Team (Late st Contact Info) Description 04/20/2024 Orders Only Division of Gastroenterology in [place], [place] [address] [place] [address] External, Ordering Provider, Anthony Social History Tobacco Use Types Packs/Day Years Used Date Smoking Tobacco: Former Smokeless Tobacco: Former Chew Alcohol Use Standard Drinks/Week Comments Yes 4 (1 standard drink = 0.6 oz pur e alcohol) Na [facility] Utilities Answer Date Recorded In the past [...] often do you attend chur ch or pentecostal services? Never 04/30/2021 Do you belong to any clubs o r organizations such as religion groups, unions, fraternal or athletic groups, or [...] Answer Date Recorded PHQ-2 Score 0 04/30/2021 [facility] - Occupational Stress Questionnaire Answer [...] your living situation today? I have a [facility] place to live 03/21/2024 Education Answer Date Recorded What is the highest level of school you have completed or the highest degree you have received? Bachelor's degree (e.g., BA, AB, BS) 08/07/2019 Sex and Gender Information Value Date Recorded Sex Assigned at Male 02/09/2017 7:38 PM OVEREDGE MACHINE OPERATOR Legal Sex Male 4:30 PM OVEREDGE MACHINE OPERATOR Gender Identity Male 02/09/2017 7:38 PM OVEREDGE MACHINE OPERATOR Sexual Orientation Straight 02/09/2017 7: 38 PM OVEREDGE MACHINE OPERATOR documented as of this encounter Plan of Treatment Upcoming Encounters Date Type Department Care Team (Late st Contact Info) Description 05/29/2024 12:00 PM CDT Appointment Department of Laboratory Medicine and Pathology, [facility] in [place], [place] [address] [place] [phone] Aysha Brantley M.B., B.Ch., B.A.O. [address] [place] [phone] 05/29/2024 2:00 PM CDT Appointment Department of Radiology, [facility], in [place], [place] [address] [place] [address] Aysha Brantley M.B., B.Ch., B.A.O. [address] [place] [phone] 05/30/2024 9:45 AM CDT Appointment Division of Gastroenterology in [place], [place] [address] [place] [phone] Aysha Brantley M.B., B.Ch., B.A.O. [address] [place] [phone] 06/07/2024 10:00 AM CDT Telemedicine Division of Gastroenterology in [place], [place] [address] [place] [phone] Aysha Brantley M.B., B.Ch., B.A.O. [address] [place] [phone] documented as of this encounter Procedures Procedure Name Priority Date/Time Associated Diagnosis Comments IRON AND TOT IRON-BINDING CAPACITY, S/P Routine 04/20/2024 7:19 AM OVEREDGE MACHINE OPERATOR HEPATITIS B SURFACE ANTIGEN Routine 04/20/2024 7:19 AM OVEREDGE MACHINE OPERATOR CBC WITH DIFFERENTIAL, B Routine 04/20/2024 7:19 AM OVEREDGE MACHINE OPERATOR C-REACTIVE PROTEIN (CRP), S/P Routine 04/20/2024 7:19 AM OVEREDGE MACHINE OPERATOR FERRITIN, S Routine 04/20/2024 7:19 AM OVEREDGE MACHINE OPERATOR VITAMIN B12 ASSAY, S Routine 04/20/2024 7:19 AM OVEREDGE MACHINE OPERATOR COMPREHENSIVE METABOLIC PANEL, S/P Routine 04/20/2024 7:19 AM OVEREDGE MACHINE OPERATOR documented in this encounter Results * Hepatitis B Surface Antigen (04/20/2024 7:19 AM OVEREDGE MACHINE OPERATOR) EXT Hepatitis B Surface Ag NON-REACTI VE NON-REACTI VE SCANNED REPORT 04/20/2024 7:19 AM OVEREDGE MACHINE OPERATOR Narrative SCANNED REPORT - 04/26/2024 8:10 AM OVEREDGE MACHINE OPERATOR Source result document attached to Order Number [id number] ([id number]) dated 04/20/2024. External results verified in Extract by Katarina Faust on 04/26/2024 at 08:03 AM. us Ordering Provider External Anthony LAB MICROBIOLOGY - BLOOD ORDERABLES Final Result Performing Organization Address City/[facility]/ZIP Co de Phone Number SCANNED REPORT * CRP (C-Reactive Protein) (04/20/2024 7:19 AM OVEREDGE MACHINE OPERATOR) EXT C-Reactive Protein Quantative <3.0 <8.0 mg/L SCANNED REPORT 04/20/2024 7:19 AM OVEREDGE MACHINE OPERATOR Narrative [facility] - 04/26/2024 8:10 AM OVEREDGE MACHINE OPERATOR Source result document attached to Order Number [id number] ([id number]) dated 04/20/2024. External results verified in Extract by Katarina Faust on 04/26/2024 at 08:03 AM. us Ordering Provider Rick Cruz LAB BLOOD ADD-ON Final Result Performing Organization Address City/[facility]/ZIP Co de Phone Number [facility] NA SCANNED REPORT * Vitamin B12 Assay (04/20/2024 7:19 AM OVEREDGE MACHINE OPERATOR) Pathologist [facility] EXT Vitamin B12 Assay, S 292 200 - 1,100 pg/mL SCANNED REPORT 04/20/2024 7:19 AM OVEREDGE MACHINE OPERATOR Narrative [facility] - 04/26/2024 8:10 AM OVEREDGE MACHINE OPERATOR Source result document attached to Order Number [id number] ([id number]) dated 04/20/2024. External results verified in Extract by Katarina Faust on 04/26/2024 at 08:03 AM. us Ordering Provider Rick Cruz LAB BLOOD ADD-ON Final Result Performing Organization Address [facility] Co de Phone Number [facility] NA SCANNED REPORT * Ferritin (04/20/2024 7:19 AM OVEREDGE MACHINE OPERATOR) Pathologist [facility] EXT Ferritin, S 63 38 - 380 ng/mL SCANNED REPORT 04/20/2024 7:19 AM OVEREDGE MACHINE OPERATOR Narrative [facility] - 04/26/2024 8:10 AM OVEREDGE MACHINE OPERATOR Source result document attached to Order Number [id number] ([id number]) dated 04/20/2024. External results verified in Extract by Katarina Faust on 04/26/2024 at 08:03 AM. us Ordering Provider Rick Cruz LAB BLOOD ADD-ON Final Result Performing Organization Address [facility] Phone Number [facility] NA SCANNED REPORT * Iron and Total Iron-Binding Capacity (04/20/2024 7:19 AM OVEREDGE MACHINE OPERATOR) [facility] EXT Iron 120 50 - 180 mcg/dL SCANNED REPORT EXT Total Iron Binding Capacity 407 250 - 425 mcg/dL SCANNED REPORT 04/20/2024 7:19 AM OVEREDGE MACHINE OPERATOR Narrative [facility] - 04/26/2024 8:10 AM OVEREDGE MACHINE OPERATOR Source result document attached to Order Number [id number] ([id number]) dated 04/20/2024. External results verified in Extract by Katarina Faust on 04/26/2024 at 08:03 AM. us Ordering Provider Rick Cruz LAB BLOOD ADD-ON Final Result Performing Organization Address [facility] Co de Phone Number [facility] NA SCANNED REPORT * CBC with Differential, Blood (04/20/2024 7:19 AM OVEREDGE MACHINE OPERATOR) [facility] EXT Leukocytes 6.6 3.8 - 10.8 Thousand/u L SCANNED REPORT EXT RBC 5.17 4.20 - 5.80 Million/uL SCANNED REPORT EXT Hemoglobin 16.1 13.2 - 17.1 g/dL SCANNED REPORT EXT Hematocrit 47.1 38.5 - 50.0 % SCANNED REPORT EXT MCV 91.1 80.0 - 100.0 fL SCANNED REPORT EXT RDW 13.3 11.0 - 15.0 % SCANNED REPORT 04/20/2024 7:19 AM OVEREDGE MACHINE OPERATOR Narrative [facility] LOCATION [facility] - 04/26/2024 8:10 AM OVEREDGE MACHINE OPERATOR Source result document attached to Order Number [id number] ([id number]) dated 04/20/2024. External results verified in Extract by Katarina Faust on 04/26/2024 at 08:03 AM. us Ordering Provider External M.D. LAB BLOOD ADD-ON Final Result [facility] NA SCANNED REPORT * (ABNORMAL) Comprehensive Metabolic Panel (04/20/2024 7:19 AM OVEREDGE MACHINE OPERATOR) [facility] EXT Glucose 98 65 - 99 mg/dL [...] 46 U/L SCANNED REPORT 04/20/2024 7:19 AM OVEREDGE MACHINE OPERATOR Narrative SCANNED REPORT - 04/26/2024 8:10 AM OVEREDGE MACHINE OPERATOR External results verified in Extract by Katarina Faust on 04/26/2024 at 08:03 AM. Additional tests on scanned report. us Ordering Provider External M.D. LAB BLOOD ADD-ON Final Result SCANNED REPORT documented in this encounter Visit Diagnoses Not on filedocumented in this encounter Additional Health Concerns Assessment Noted Time PHQ-9 Depression Total Score: 2 05/01/19 22 8:11 AM OVEREDGE MACHINE OPERATOR documented as of this encounter Care Teams Statue Maker Relationship Specialty Start Date End Date Tristan Burnham D.O. [address] [phone] PCP - General Internal Medicine 12/12/17 documented as of this encounter
--- OUTSIDE RECORDS SUMMARY | 2024-05-02 14:03 | XMS_ITS | Clinical Summary ---
Author Organization [facility] Address [address] [place] [address] Care Team Providers Care Stock Preparer Name Role Phone Tristan Burnham D.O. Primary Care Provider +1- [phone] Source Comments Patient records contain information from all sites at [facility]. For routine questions regarding patient records, call [phone] during business hours, M-F 8:00 AM - 5:00 PM Central Time. Record requests for emergency care only can be directed to [phone] at any time.[facility] Allergies Active Allergy Reactions Criticality Noted Date [...] 5 mg by mouth daily. 3 Active [id number] b-C (MoviPrep) 100-7.5-2.691 gram kit Take first [...] 04/30/2024 Results Follow-Up Division of Gastroenterology in [place], [place] [address] [place] [address] Aysha Brantley M.B., B.Ch., B.A.O. Comprehensive Metabolic Panel, CBC with Differential, Blood, Iron and Total Iron-Binding Capacity, Additional followed-up results: 4 04/20/2024 Orders Only Division of Gastroenterology in [place], [place] [address] [place] [address] External, Ordering ProviderAnthony 03/22/2024 1:00 PM EXPLOSION WELDER Telemedicine Division of Gastroenterology in [place], [place] [address] [place] [address] Aysha Brantley M.B., B.Ch., B.A.O. Crohn's Disease (HCC) (Primary Dx); Melanoma Trunk (HCC); Pain Periumbilical 03/12/2024 Orders Only Division of Gastroenterology in [place], [place] [address] [place] [address] Charisma Niño M.D. 03/09/2024 Orders Only Department of Infusion Therapy in [place], [place] [address] [place] [address] Loy Lara, R.NValeriano 03/06/2024 Orders Only [facility] PCP [facility] MNT Tristan Burnham D.O. Monitoring For Therapeutic [...] In the past 12 months has e [employer] oil, or water [employer] threatened to shut off services in your [...] How often do you attend chur or mu-ism services? Never 04/30/2021 Do you belong to any clubs o r organizations such as congregation groups, unions, fraternal or athletic groups, or [...] Answer Date Recorded PHQ-2 Score 0 04/30/2021 [facility] - Occupational [...] Sex Assigned at Male 02/09/2017 7:38 PM EXPLOSION WELDER Legal Sex Male 4:30 PM EXPLOSION WELDER Gender Identity Male 02/09/2017 7:38 PM EXPLOSION WELDER Sexual Orientation Straight 02/09/2017 7: 38 PM EXPLOSION WELDER Last Filed Vital Signs Vital Sign Reading Time Taken Comments Blood Pressure 140/83 01/27/2024 2:10 PM EXPLOSION WELDER Pulse 76 01/27/2024 2:10 PM EXPLOSION WELDER Temperature 36.6 C (97.9 F) 01/27/2024 12:54 PM EXPLOSION WELDER Respiratory Rate 16 01/27/2024 2:10 PM EXPLOSION WELDER Oxygen Saturation 97% 01/27/2024 12:54 PM EXPLOSION WELDER Inhaled Oxygen Concentration - - Weight 118 kg (260 lb 12.9 oz) 01/27/2024 12:54 PM EXPLOSION WELDER Height 186 cm (6' 1.23) 04/30/2021 8:17 AM EXPLOSION WELDER Body Mass Index 34.2 04/30/2021 8:17 AM EXPLOSION WELDER Plan of Treatment Upcoming Encounters Date Type Department Care Team (Late st Contact Info) Description 05/29/2024 12:00 PM CDT Appointment Department of Laboratory Medicine and Pathology, [place], [place] [address] [place] [address] Aysha Brantley M.B., B.Ch., B.A.O. [address] [place] [phone] 05/29/2024 2:00 PM CDT Appointment Department of Radiology, [facility] in [place], [place] [address] [place] [address] Aysha Brantley M.B., B.Ch., B.A.O. [address] [place] [phone] 05/30/2024 9:45 AM CDT Appointment Division of Gastroenterology in [place], [place] [address] [place] [phone] Aysha Brantley M.B., B.Ch., B.A.O. [address] [place] [phone] 06/07/2024 10:00 AM CDT Telemedicine Division of Gastroenterology in [place], [place] [address] [place] [phone] Aysha Brantley M.B., B.Ch., B.A.O. [address] [place] [phone] Health Maintenance Due Date Last Done Comments [...] PROTEIN (CRP), S/P Routine 04/20/2024 7:19 AM EXPLOSION WELDER VITAMIN B12 ASSAY, S Routine 04/20/2024 7:19 AM EXPLOSION WELDER FERRITIN, S Routine 04/20/2024 7:19 AM EXPLOSION WELDER IRON AND TOT IRON-BINDING CAPACITY, S/P Routine 04/20/2024 7:19 AM EXPLOSION WELDER CBC WITH DIFFERENTIAL, B Routine 04/20/2024 7:19 AM EXPLOSION WELDER COMPREHENSIVE METABOLIC PANEL, S/P Routine 04/20/2024 7:19 AM EXPLOSION WELDER QUANTIFERON-TB GOLD PLUS, B Routine 04/20/2024 7:19 AM EXPLOSION WELDER HEPATITIS B SURFACE ANTIGEN Routine 04/20/2024 7:19 AM EXPLOSION WELDER COLONOSCOPY Routine 05/25/2021 12:20 PM CDT Crohn's Disease (HCC) LIPID PANEL, S Routine 03/16/2021 12:29 PM EXPLOSION WELDER Screening Lipid from Last 3 Months or Most Recently Relevant to Health Maintenance Results * QuantiFERON-Tb Gold Plus, Blood (04/20/2024 7:19 AM EXPLOSION WELDER) [facility] EXT QuantiFERON-TB Gold Result negative negative SCANNED REPORT 04/20/2024 7:19 AM EXPLOSION WELDER Narrative SCANNED REPORT - 04/26/2024 8:10 AM EXPLOSION WELDER Source result document attached to Order Number [id number] ([id number]) dated 04/20/2024. External results verified in Extract by Katarina Faust on 04/26/2024 at 08:08 AM. us Ordering Provider External M.DValeriano LAB MICROBIOLOGY - BLOOD ORDERABLES Final Result SCANNED REPORT * Iron and Total Iron-Binding Capacity (04/20/2024 7:19 AM EXPLOSION WELDER) [facility] EXT Iron 120 50 - 180 mcg/dL SCANNED REPORT EXT Total Iron Binding Capacity 407 250 - 425 mcg/dL SCANNED REPORT 04/20/2024 7:19 AM EXPLOSION WELDER Narrative [facility] - 04/26/2024 8:10 AM EXPLOSION WELDER Source result document attached to Order Number [id number] ([id number]) dated 04/20/2024. External results verified in Extract by Katarina Faust on 04/26/2024 at 08:03 AM. us Ordering Provider External M.DValeriano LAB BLOOD ADD-ON Final Result [facility] SCANNED REPORT * Hepatitis B Surface Antigen (04/20/2024 7:19 AM EXPLOSION WELDER) [facility] EXT Hepatitis B Surface Ag NON-REACTI VE NON-REACTI VE SCANNED REPORT 04/20/2024 7:19 AM EXPLOSION WELDER Narrative SCANNED REPORT - 04/26/2024 8:10 AM EXPLOSION WELDER Source result document attached to Order Number [id number] ([id number]) dated 04/20/2024. External results verified in Extract by Katarina Faust on 04/26/2024 at 08:03 AM. us Ordering Provider External M.DValeriano LAB MICROBIOLOGY - BLOOD ORDERABLES Final Result SCANNED REPORT * CBC with Differential, Blood (04/20/2024 7:19 AM EXPLOSION WELDER) [facility] EXT Leukocytes 6.6 3.8 - 10.8 Thousand/u L SCANNED REPORT EXT RBC 5.17 4.20 - 5.80 Million/uL SCANNED REPORT EXT Hemoglobin 16.1 13.2 - 17.1 g/dL SCANNED REPORT EXT Hematocrit 47.1 38.5 - 50.0 % SCANNED REPORT EXT MCV 91.1 80.0 - 100.0 fL SCANNED REPORT EXT RDW 13.3 11.0 - 15.0 % SCANNED REPORT 04/20/2024 7:19 AM EXPLOSION WELDER Narrative [facility] - 04/26/2024 8:10 AM EXPLOSION WELDER Source result document attached to Order Number [id number] ([id number]) dated 04/20/2024. External results verified in Extract by Katarina Faust on 04/26/2024 at 08:03 AM. us Ordering Provider External M.DValeriano LAB BLOOD ADD-ON Final Result [facility] NA SCANNED REPORT * CRP (C-Reactive Protein) (04/20/2024 7:19 AM EXPLOSION WELDER) [facility] EXT C-Reactive Protein Quantative <3.0 <8.0 mg/L SCANNED REPORT 04/20/2024 7:19 AM EXPLOSION WELDER Narrative [facility] - 04/26/2024 8:10 AM EXPLOSION WELDER Source result document attached to Order Number [id number] ([id number]) dated 04/20/2024. External results verified in Extract by Katarina Faust on 04/26/2024 at 08:03 AM. us Ordering Provider External M.DValeriano LAB BLOOD ADD-ON Final Result Performing Organization Address City/[facility]/ZIP Co de Phone Number [facility] NA SCANNED REPORT * Ferritin (04/20/2024 7:19 AM EXPLOSION WELDER) EXT Ferritin, S 63 38 - 380 ng/mL SCANNED REPORT 04/20/2024 7:19 AM EXPLOSION WELDER Narrative [facility] - 04/26/2024 8:10 AM EXPLOSION WELDER Source result document attached to Order Number [id number] ([id number]) dated 04/20/2024. External results verified in Extract by Katarina Faust on 04/26/2024 at 08:03 AM. us Ordering Provider External MRodney LAB BLOOD ADD-ON Final Result Performing Organization Address [facility] Co de Phone Number [facility] NA SCANNED REPORT * Vitamin B12 Assay (04/20/2024 7:19 AM EXPLOSION WELDER) EXT Vitamin B12 Assay, S 292 200 - 1,100 pg/mL SCANNED REPORT 04/20/2024 7:19 AM EXPLOSION WELDER Narrative [facility] - 04/26/2024 8:10 AM EXPLOSION WELDER Source result document attached to Order Number [id number] ([id number]) dated 04/20/2024. External results verified in Extract by Katarina Faust on 04/26/2024 at 08:03 AM. us Ordering Provider External M.DValeriano LAB BLOOD ADD-ON Final Result Performing Organization Address City/[facility]/ZIP Co de Phone Number [facility] NA SCANNED REPORT * (ABNORMAL) Comprehensive Metabolic Panel (04/20/2024 7:19 AM EXPLOSION WELDER) EXT Glucose 98 65 - 99 mg/dL [...] 46 U/L SCANNED REPORT 04/20/2024 7:19 AM EXPLOSION WELDER Narrative SCANNED REPORT - 04/26/2024 8:10 AM EXPLOSION WELDER External results verified in Extract by Katarina Faust on 04/26/2024 at 08:03 AM. Additional tests on scanned report. us Ordering Provider External M.D. LAB BLOOD ADD-ON Final Result SCANNED REPORT * (ABNORMAL) Lipid Panel (03/16/2021 12:29 PM EXPLOSION WELDER) Cholesterol, Total 254(H) mg/dL 2021 1:10 PM EXPLOSION WELDER OWAT Comment: ----REFERENCE VALUE---- Desirable: < 200 Borderline high: 200 - 239 High: > or = 240 Triglycerides 295(H) mg/dL 03/16/2021 1:10 PM EXPLOSION WELDER OWAT Comment: ----REFERENCE VALUE---- Normal: <150 Borderline high: 150-199 High: 200-499 Very high: > or =500 Cholesterol, HDL 78 >=40 mg/dL 03/16/19 1:10 PM EXPLOSION WELDER OWAT Calculated LDL 117 mg/dL 03/16/2021 1:10 PM EXPLOSION WELDER OWAT Comment: ----REFERENCE VALUE---- Desirable: <100 mg/dL Above Desirable: 100-129 mg/dL Borderline High: 130-159 mg/dL High: 160-189 mg/dL Very High: >=190 mg/dL Cholesterol, Non-HDL, Calculated 176(H) mg/dL 03/16/2021 1:10 PM EXPLOSION WELDER OWAT Comment: ----REFERENCE VALUE---- Desirable: <130 Above Desirable: 130-159 Borderline high: 160-189 High: 190-219 Very high: > or =220 Blood (Blood, Venous) 03/16/2021 12:29 PM EXPLOSION WELDER 03/16/2021 12:35 PM EXPLOSION WELDER us Tristan Burnham D.O. LAB BLOOD ADD-ON Final Res ult [facility] [address] [address], [facility] OWAT [facility] [place] [address] [place] [address] from Last 3 Months or Most Recently Relevant to Health Maintenance Insurance [employer] Care Teams Stock Preparer Relationship Specialty Start Date End Date Tristan Burnham D.O. [address] [place] [phone] PCP - General Internal Medicine 12/12/17
[2024-05-02] MEDS: cephALEXin 500 MG CAPSULE PO (14:11)
[2024-05-02] MEDS: TETANUS/DIPHTH/PERTUSSIS 0.5 ML SYRINGE IM (14:32)
== END 2024-05-02 14:34 | disposition home or self-care (01) ==
PROVIDERS: Emergency Provider Family Medicine; PCP Student in an Organized Health Care Education/Training Program
DX: S01.111A Laceration without foreign body of right eyelid and periocular area, initial encounter (principal); Z23 Encounter for immunization; W26.9XXA Contact with unspecified sharp object(s), initial encounter
CPT/HCPCS: 12011; 90471; 90715; 99283; A9270